=== PATIENT | female | born 1955 | race Caucasian/White ===

== ENCOUNTER 2018-06-28 11:38 | Observation (INO) | payer OTHER ==
[2018-06-28 11:51] VITALS: BMI 19.3
--- NOTE | 2018-06-28 13:01 | PDOC ---
History of Present Illness - General Chief Complaint: Rectal Bleed Stated Complaint: WEAK/RECTAL BLEEDING Time Seen by Provider: 06/28/18 12:07 History Source: Patient, Care Provider Exam Limitations: Language Barrier (exclusive Trinidadian speaker, nurse acted as educational guidance counselor) - History of Present Illness Initial Comments: Patient is a 63 y/o F w/ PMHx CKD on HD (at [facility]), anemia, "arthritis," "bladder inflammation," p/w one episode of BRBPR while attempting to defecate yesterday. Patient states the toilet bowl was filled with a mixture of bright red blood and soft formed stool. This is the first such episode she is aware of. She is hemodynamically stable on presentation. Patient endorses chills, weakness, fatigue, dyspnea at rest. Denies abd pain, n/v/d (is chronically constipated). Denies CP, TROTTER, fever, focal weakness or change in sensation. Unaware of any change in weight. She reports undergoing a colonoscopy at [facility] ~7 years ago which was significant only for polyps. States she was advised to undergo repeat colonoscopy but was told it was contraindicated by her renal status. Denies any personal or family history of IBD. Unable to specify the form of arthritis she has. Denies history of hemorrhoids. Has a PSHx of thyroid surgery but cannot recall the cause. Per patient and caregiver, her medications are acetaminophen, iron supplements, and phoslo. 06/28/18 12:52 06/28/18 13:01 Past History - Travel Traveled outside of the country in the last 30 days: No Close contact w/someone who was outside of country & ill: No - Past Medical History Allergies/Adverse Reactions: Allergies Allergy/AdvReac Type Severity Reaction Status Date / Time Penicillins Allergy Verified 06/28/18 13:39 Home Medications: Ambulatory Orders Unobtainable 10/04/15 COPD: No Dialysis: Yes (,,SUN) - Suicide/Smoking/Psychosocial Hx Smoking History: Never smoked Have you smoked in the past 12 months: No Number of Cigarettes Smoked Daily: 0 Hx Alcohol Use: No Drug/Substance Use Hx: No Review of Systems - Review of Systems Comments:: As per HPI 06/28/18 13:01 *Physical Exam - Vital Signs Last Vital Signs Temp Pulse Resp BP Pulse Ox 98 F 86 22 H 131/75 98 06/28/18 11:48 06/28/18 11:48 06/28/18 11:48 06/28/18 11:48 06/28/18 11:48 - Physical Exam Comments: Gen: A&Ox3, NAD HEENT: NC/AT, PERRLA, EOMI, MMM CV: RRR no m/r/g Resp: CTA b/l Abd: +bs, soft, NT, ND Extremities: 2+ pulses, wwp, AV fistula on RUE w/ thrill, prominent rheumatoid deformities of all extremities Neuro: fingernail former, motor, sensory systems w/o focal deficit Skin: warm, dry, normal turgor BRIGIDA: prominent external hemorrhoids, 1 internal hemorrhoid, no stool in vault, scant brown stool without blood on finger, FOBT study sent 06/28/18 13:02 06/28/18 13:06 Moderate Sedation - Procedure Monitoring Vital Signs: Procedure Monitoring Vital Signs Temperature 98 F 06/28/18 11:48 Pulse Rate 86 06/28/18 11:48 Respiratory Rate 22 H 06/28/18 11:48 Blood Pressure 131/75 06/28/18 11:48 O2 Sat by Pulse Oximetry (%) 98 06/28/18 11:48 ED Treatment Course - LABORATORY CBC & Chemistry Diagram: 06/28/18 13:55 06/28/18 13:55 Medical Decision Making - Medical Decision Making DDx of painless hematochezia is broad including bleeding 2/2 hemorrhoids, diverticulosis, AVM, and malignancy. FOBT sent on initial encounter. Ordered CBC , CMP, Mg, Phos, Coags, Retics, T&S. 06/28/18 13:04 FOBT negative. Hb 10.2, no baseline for comparison. 06/28/18 14:20 *DC/Admit/Observation/Transfer Diagnosis at time of Disposition: Rectal bleeding - Discharge Dispostion Condition at time of disposition: Guarded Decision to Admit order: Yes - Referrals - Patient Instructions - Post Discharge Activity
[2018-06-28 14:09] LABS: BASO % 1.4 % (0-2.0); EOS % 1.6 % (0-4.5); HEMATOCRIT 32.2 % (32.4-45.2); HEMOGLOBIN 10.2 GM/dL (10.7-15.3); LYMPH % 17.4 % (8-40); MCH 26.2 pg (25.7-33.7); MCHC 31.7 g/dl (32.0-36.0); MEAN CELL VOLUME 82.4 fl (80-96); MONO % 11.8 % (3.8-10.2); NEUT % 67.8 % (42.8-82.8); PLATELET COUNT 378 K/MM3 (134-434); RBC 3.91 M/mm3 (3.60-5.2); WHITE BLOOD COUNT 6.3 K/mm3 (4.0-10.0)
[2018-06-28 14:22] LABS: INR 1.1 (0.83-1.09)
--- NOTE | 2018-06-28 14:27 | PDOC ---
Attending Attestation - Resident Resident Name: Nikita Mclean - ED Attending Attestation I have performed the following: I have examined & evaluated the patient, The case was reviewed & discussed with the resident, I agree w/resident's findings & plan, Exceptions are as noted - HPI HPI: 06/28/18 15:02 The patient is a 63 year old female, accompanied by health aid, with a significant PMH of ESRD on dialysis TTS ([facility]), anemia, arthritis, bladder inflammation, who presents to the emergency department with bright red blood per rectum x2. The patient states this is the first time she has experienced these symptoms. The patient reports she noted a bright red blood in the toilet and soft stool yesterday and another episode today. The patient also endorses chills, weakness, fatigue, and chronic constipation. The patient denies history of IBD. Denies any history of hemorrhoids. Denies any recent abdominal pain or cramping. The patient denies chest pain, SOB, palpitations, headache and dizziness. Denies fever, nausea, vomit, and diarrhea. Denies dysuria, frequency, urgency and hematuria. Allergies: Penicillin Past surgical history: right upper extremity AV graft Social history: No reported - Physicial Exam PE: 06/28/18 15:05 agree with resident exam - Medical Decision Making 06/28/18 15:05 63yo F with MMP presents to the ED with rectal bleeding. Vitals unremarkable, exam with no ttp. DDx inlcudes diverticulosis vs vascular malformation vs internal hemorrhoids. Plan for labs, obs admission. Heart Score/ECG Review #1 06/28/18 15:07 Twelve-lead EKG was performed and reviewed by me. Normal sinus rhythm, rate 76. Left axis deviation, no ST elevations.
[2018-06-28 14:35] LABS: ALBUMIN 2.2 g/dl (3.4-5.0); ALK PHOS 116 U/L (45-117); ANION GAP 9 MMOL/L (8-16); BILIRUBIN,TOTAL 0.3 mg/dL (0.2-1); BLOOD UREA NITROGEN 57 mg/dL (7-18); CALCIUM 8.4 mg/dL (8.5-10.1); CHLORIDE 101 mmol/L (98-107); CO2 28 mmol/L (21-32); CREATININE 4.2 mg/dL (0.55-1.3); GLUCOSE,RANDOM 84 mg/dL (74-106); PHOSPHOROUS 6.7 mg/dL (2.5-4.9); POTASSIUM 4.4 mmol/L (3.5-5.1); SGOT/AST 12 U/L (15-37); SGPT/ALT 22 U/L (13-61); SODIUM 138 mmol/L (136-145)
[2018-06-28 15:15] LABS: ANISOCYTOSIS 1+; MACROCYTOSIS 1+; PLATELET ESTIMATE NORMAL
--- NOTE | 2018-06-28 18:32 | CON.GI ---
Consult Consult Specialty:: GI Referred by:: Chelsy wild - History of Present Illness History of Present Illness: 63 y/o F with PMH of ESRD had 1 episode of rectal bleeding. In the ER no further episodes noted. She is wheel chair dependent. She denies nausea, vomiting, melena and unexplained weight loss - Alcohol/Substance Use Hx Alcohol Use: No - Smoking History Smoking history: Never smoked Have you smoked in the past 12 months: No Aproximately how many cigarettes per day: 0 Home Medications - Allergies Allergies/Adverse Reactions: Allergies Allergy/AdvReac Type Severity Reaction Status Date / Time Penicillins Allergy Verified 06/28/18 13:39 - Home Medications Home Medications: Ambulatory Orders Acetaminophen [Tylenol Arthritis] 650 mg PO Q8H PRN 06/28/18 Calcium Acetate [Phoslo -] 667 mg PO TIDCM 06/28/18 Ferrous Sulfate [Feosol] 325 mg PO BID 06/28/18 Review of Systems - Review of Systems Constitutional: denies: Fever Eyes: denies: Blind Spots HENT: denies: Difficult Swallowing Neck: denies: Decreased ROM Cardiovascular: reports: Chest Pain Gastrointestinal: reports: Rectal Bleeding Musculoskeletal: reports: Other (lower extremity pain) Physical Exam-GI Vital Signs: Vital Signs Temperature 98 F 06/28/18 11:48 Pulse Rate 82 06/28/18 14:15 Respiratory Rate 18 06/28/18 14:15 Blood Pressure 118/66 06/28/18 14:15 O2 Sat by Pulse Oximetry (%) 97 06/28/18 14:15 Constitutional: Yes: Cachectic Eyes: Yes: Conjunctiva Clear HENT: Yes: Atraumatic Neck: Yes: Supple Cardiovascular: Yes: Regular Rate and Rhythm Respiratory: Yes: CTA Bilaterally Gastrointestinal Inspection: No: Distention ...Auscultate: Yes: Normoactive Bowel Sounds ...Palpate: Yes: Soft. No: Firm/Rigid, Guarding, Hepatomegaly, Mass, Pulsatile Mass, Splenomegaly, Tenderness ...Rectal Exam: Yes: Sphincter Tone Normal. No: Hemorrhoids/External, Hemorrhoids/Internal, Mass (empty rectal vault) Labs: CBC, BMP 06/28/18 13:55 06/28/18 13:55 INR, PTT INR 1.10 (0.83-1.09) H 06/28/18 13:55 Problem List - Problems (1) Rectal bleeding Assessment/Plan: etiology unclear R> made aware to follow, no active bleeding noted in the ER examination Code(s): K62.5 - HEMORRHAGE OF ANUS AND RECTUM
--- NOTE | 2018-06-28 18:56 | HP ---
Admitting History and Physical - Admission Chief Complaint: Rectal bleeding History of Present Illness: Patient is a 63 y/o female with past medical history of ESRD (), anemia, arthritis, and bladder inflammation. Patient presented to ER with complaints of BRBPR x 2 episodes yesterday when having a bowel movement. Patient denies experiencing rectal bleeding prior to yesterday's episode. H/H stable and Stool Occult blood negative. She denies abdominal pain, nausea, vomiting, rectal pain. Patient complain of increased feelings of fatigue. History Source: Patient Limitations to Obtaining History: No Limitations - Past Medical History Renal/: Yes: Renal Failure, Hemodialysis () Heme/Onc: Yes: Anemia - Smoking History Smoking history: Never smoked Have you smoked in the past 12 months: No Aproximately how many cigarettes per day: 0 - Alcohol/Substance Use Hx Alcohol Use: No - Social History Usual Living Arrangement: Yes: Other (with son) ADL: Family Assistance History of Recent Travel: No <Marilyn Delarosa - Last Filed: 06/28/18 19:03> Home Medications <Marilyn Delarosa - Last Filed: 06/28/18 19:03> <Anthony Valentino - Last Filed: 06/28/18 21:18> - Allergies Allergies/Adverse Reactions: Allergies Allergy/AdvReac Type Severity Reaction Status Date / Time Penicillins Allergy Verified 06/28/18 13:39 - Home Medications Home Medications: Ambulatory Orders Acetaminophen [Tylenol Arthritis] 650 mg PO Q8H PRN 06/28/18 Calcium Acetate [Phoslo -] 667 mg PO TIDCM 06/28/18 Ferrous Sulfate [Feosol] 325 mg PO BID 06/28/18 Review of Systems - Review of Systems Constitutional: reports: Lethargy Eyes: reports: No Symptoms HENT: reports: No Symptoms Neck: reports: No Symptoms Cardiovascular: reports: No Symptoms Respiratory: reports: No Symptoms Gastrointestinal: reports: Rectal Bleeding Genitourinary: reports: No Symptoms Breasts: reports: No Symptoms Reported Musculoskeletal: reports: Joint Pain Integumentary: reports: No Symptoms Neurological: reports: No Symptoms Endocrine: reports: No Symptoms Hematology/Lymphatic: reports: No Symptoms Psychiatric: reports: No Symptoms <Marilyn Delarosa - Last Filed: 06/28/18 19:03> Physical Examination Vital Signs: Vital Signs Temperature 97.9 F 06/28/18 18:00 Pulse Rate 80 06/28/18 18:00 Respiratory Rate 20 06/28/18 18:00 Blood Pressure 111/72 06/28/18 18:00 O2 Sat by Pulse Oximetry (%) 97 06/28/18 14:15 Constitutional: Yes: Calm, Cachectic Eyes: Yes: Conjunctiva Clear HENT: Yes: Atraumatic Neck: Yes: Supple Cardiovascular: Yes: Regular Rate and Rhythm Respiratory: Yes: Regular, CTA Bilaterally Gastrointestinal: Yes: Normal Bowel Sounds, Soft Musculoskeletal: Yes: Joint Stiffness, Muscle Weakness Extremities: Yes: Deformity (arthritic derformity B/L hand) Edema: No Integumentary: Yes: WNL Neurological: Yes: Alert, Oriented Psychiatric: Yes: Alert, Oriented Labs: CBC, BMP 06/28/18 13:55 06/28/18 13:55 <Marilyn Delarosa - Last Filed: 06/28/18 19:03> Vital Signs: Vital Signs Temperature 97.9 F 06/28/18 18:00 Pulse Rate 80 06/28/18 18:00 Respiratory Rate 20 06/28/18 18:00 Blood Pressure 111/72 06/28/18 18:00 O2 Sat by Pulse Oximetry (%) 97 06/28/18 14:15 Labs: CBC, BMP 06/28/18 13:55 06/28/18 13:55 <Anthony Valentino - Last Filed: 06/28/18 21:18> Problem List - Problems (1) ESRD on hemodialysis Code(s): N18.6 - END STAGE RENAL DISEASE; Z99.2 - DEPENDENCE ON RENAL DIALYSIS (2) Rectal bleeding Code(s): K62.5 - HEMORRHAGE OF ANUS AND RECTUM (3) Anemia Code(s): D64.9 - ANEMIA, UNSPECIFIED <Marilyn Delarosa - Last Filed: 06/28/18 19:03> Assessment/Plan -GI consult made -clear liquid diet -renal consult -on phoslo TID -H/H stable, will monitor -cont iron BID -HD on -S -1L fluid restriction -O2 via NC, keep SpO2 >90% -dvt ppx <Marilyn Delarosa - Last Filed: 06/28/18 19:03> I HAVE EXAMINED THE PATIENT AND I AGREE WITH THE ABOVE NOTE <Anthony Valentino - Last Filed: 06/28/18 21:18>
[2018-06-28] MEDS: FERROUS SO4 325 MG TABLET (FP) PO SCH (22:39)
[2018-06-29 07:47] LABS: HEMATOCRIT 29.3 % (32.4-45.2); HEMOGLOBIN 9.4 GM/dL (10.7-15.3); MCH 26.5 pg (25.7-33.7); MCHC 31.9 g/dl (32.0-36.0); MEAN CELL VOLUME 82.9 fl (80-96); MEAN PLT VOLUME 8.2 fl (7.5-11.1); PLATELET COUNT 334 K/MM3 (134-434); RBC 3.54 M/mm3 (3.60-5.2); RDW 22.2 % (11.6-15.6); WHITE BLOOD COUNT 5.9 K/mm3 (4.0-10.0)
[2018-06-29 08:08] LABS: ALK PHOS 106 U/L (45-117); ANION GAP 12 MMOL/L (8-16); BILIRUBIN,TOTAL 0.4 mg/dL (0.2-1); BLOOD UREA NITROGEN 74 mg/dL (7-18); CALCIUM 7.6 mg/dL (8.5-10.1); CHLORIDE 102 mmol/L (98-107); CO2 25 mmol/L (21-32); CREATININE 5.4 mg/dL (0.55-1.3); GLUCOSE,RANDOM 72 mg/dL (74-106); POTASSIUM 5.5 mmol/L (3.5-5.1); SGOT/AST 10 U/L (15-37); SGPT/ALT 20 U/L (13-61); SODIUM 139 mmol/L (136-145); TOT PROT 6.5 g/dl (6.4-8.2)
[2018-06-29] MEDS: CALCIUM ACETATE 667 MG CAPSULE (FP) PO SCH ×3 (08:27→18:09)
[2018-06-29] MEDS ORDERED: SODIUM CHLORIDE 250 ML IV PRN ×2 (09:10→09:12)
[2018-06-29] MEDS: FERROUS SO4 325 MG TABLET (FP) PO SCH ×2 (09:24→21:36)
--- NOTE | 2018-06-29 12:02 | PN ---
Progress Note, Physician Chief Complaint: RECTAL BLEEDING ANEMIA ESRD History of Present Illness: NAD denies any bleeding, pain or SOB Due for dialysis today Unsure what is her baseline Hg - Current Medication List Current Medications: Active Medications Calcium Acetate (Phoslo -) 667 mg PO TIDCM [facility] Last Admin: 06/29/18 08:27 Dose: 667 mg Ferrous Sulfate (Feosol -) 325 mg PO BID [facility] Last Admin: 06/29/18 09:24 Dose: 325 mg Sodium Chloride (Normal Saline -) 250 mls @ 3,000 mls/hr IV PRN PRN PRN Reason: Hypotension during Dialysis Stop: 06/30/18 09:10 Sodium Chloride (Normal Saline -) 250 mls @ 3,000 mls/hr IV PRN PRN PRN Reason: Hypotension during Dialysis Stop: 06/30/18 09:12 - Objective Vital Signs: Vital Signs Temperature 98.8 F 06/29/18 08:49 Pulse Rate 85 06/29/18 08:49 Respiratory Rate 20 06/29/18 09:00 Blood Pressure 135/83 06/29/18 08:49 O2 Sat by Pulse Oximetry (%) 98 06/29/18 09:00 Constitutional: Yes: No Distress, Calm, Cachectic Cardiovascular: Yes: Regular Rate and Rhythm Respiratory: Yes: Regular Gastrointestinal: Yes: Normal Bowel Sounds, Soft, Abdomen, Obese Musculoskeletal: Yes: WNL Extremities: Yes: WNL Edema: No Peripheral Pulses WNL: Yes Neurological: Yes: Alert, Oriented Psychiatric: Yes: Alert, Oriented Labs: CBC, BMP 06/29/18 06:45 06/29/18 06:30 INR, PTT INR 1.10 (0.83-1.09) H 06/28/18 13:55 Problem List - Problems (1) Anemia Assessment/Plan: -likely 2/2 to ckd -first stool ob negative, would repeat -Seen by GI, no intervention recommended at this time -check iron+thyroid profile+ b12+ FA Code(s): D64.9 - ANEMIA, UNSPECIFIED (2) ESRD on hemodialysis Assessment/Plan: -Dialysis TThSa -Nephrology consult Code(s): N18.6 - END STAGE RENAL DISEASE; Z99.2 - DEPENDENCE ON RENAL DIALYSIS (3) Rectal bleeding Assessment/Plan: -stool ob negative Code(s): K62.5 - HEMORRHAGE OF ANUS AND RECTUM (4) Hyperkalemia Code(s): E87.5 - HYPERKALEMIA Assessment/Plan See problem list d/c to Zan Bowles if H/H in AM okay
--- NOTE | 2018-06-29 14:19 | CONSULT ---
Consult Consult Specialty:: Nephrology Reason for Consultation:: ESRD - History of Present Illness Chief Complaint: rectal bleeding History of Present Illness: Pt is a 63 year old female with pmhx of ESRD, arthritis, and anemia who presents to the ER after an episode of rectal bleeding. She complains of constipation as well. She is on HD at [facility] and is on a TTS schedule. She denies fevers or chills. She is due for HD today. She follows with Dr Roldan. I called him and he asked me to see her as he is away. - History Source History Provided By: Patient, Medical Record - Past Medical History Renal/: Yes: Renal Failure, Hemodialysis (T--S) ...: No Heme/Onc: Yes: Anemia Rheumatology: Yes: Other (arthritis) - Alcohol/Substance Use Hx Alcohol Use: No - Smoking History Smoking history: Never smoked Have you smoked in the past 12 months: No Aproximately how many cigarettes per day: 0 - Social History ADL: Family Assistance History of Recent Travel: No Home Medications - Allergies Allergies/Adverse Reactions: Allergies Allergy/AdvReac Type Severity Reaction Status Date / Time Penicillins Allergy Verified 06/28/18 13:39 - Home Medications Home Medications: Ambulatory Orders Acetaminophen [Tylenol Arthritis] 650 mg PO Q8H PRN 06/28/18 Calcium Acetate [Phoslo -] 667 mg PO TIDCM 06/28/18 Ferrous Sulfate [Feosol] 325 mg PO BID 06/28/18 Family Disease History - Family Disease History Family History: Denies Review of Systems - Review of Systems Constitutional: reports: No Symptoms Eyes: reports: No Symptoms HENT: reports: No Symptoms Neck: reports: No Symptoms Cardiovascular: reports: No Symptoms Respiratory: reports: No Symptoms Gastrointestinal: reports: Constipation, Rectal Bleeding Genitourinary: reports: No Symptoms Musculoskeletal: reports: Joint Pain Integumentary: reports: No Symptoms Neurological: reports: No Symptoms Endocrine: reports: No Symptoms Hematology/Lymphatic: reports: No Symptoms Psychiatric: reports: No Symptoms Physical Exam Vital Signs: Vital Signs Temperature 98.8 F 06/29/18 08:49 Pulse Rate 85 06/29/18 08:49 Respiratory Rate 20 06/29/18 09:00 Blood Pressure 135/83 06/29/18 08:49 O2 Sat by Pulse Oximetry (%) 98 06/29/18 09:00 Constitutional: Yes: Calm Eyes: Yes: Conjunctiva Clear HENT: Yes: Atraumatic Neck: Yes: Supple Cardiovascular: Yes: S1, S2 Respiratory: Yes: CTA Bilaterally Gastrointestinal: Yes: Normal Bowel Sounds, Soft Musculoskeletal: Yes: Joint Stiffness Edema: No Neurological: Yes: Oriented Psychiatric: Yes: Oriented Labs: CBC, BMP 06/29/18 06:45 06/29/18 06:30 Laboratory Tests 06/28/18 06/28/18 06/28/18 13:00 13:55 13:55 Hgb 10.2 L Sodium Potassium 4.4 Creatinine 4.2 H Stool Occult Blood Negative 06/29/18 06/29/18 06:30 06:45 Hgb 9.4 L Sodium 139 Potassium 5.5 H Creatinine 5.4 H Stool Occult Blood Problem List - Problems (1) Anemia Code(s): D64.9 - ANEMIA, UNSPECIFIED (2) ESRD on hemodialysis Code(s): N18.6 - END STAGE RENAL DISEASE; Z99.2 - DEPENDENCE ON RENAL DIALYSIS (3) Hyperkalemia Code(s): E87.5 - HYPERKALEMIA (4) Rectal bleeding Code(s): K62.5 - HEMORRHAGE OF ANUS AND RECTUM Assessment/Plan Current Medications Generic Name Dose Route Start Last Admin Trade Name Yudy PRN Reason Stop Dose Admin Calcium Acetate 667 mg 06/29/18 08:00 06/29/18 08:27 Phoslo - PO 667 mg TIDCM QUYNH Administration Ferrous Sulfate 325 mg 06/28/18 22:00 06/29/18 09:24 Feosol - PO 325 mg BID QUYNH Administration Sodium Chloride 250 mls @ 3,000 mls/hr 06/29/18 09:10 Normal Saline - IV 06/30/18 09:10 PRN PRN Hypotension during Dialysis Sodium Chloride 250 mls @ 3,000 mls/hr 06/29/18 09:12 Normal Saline - IV 06/30/18 09:12 PRN PRN Hypotension during Dialysis Impression 1. ESRD 2. hyperkalemia 3. anemia 4. rectal bleeding 5. arthritis Plan - will arrange for HD today - monitor hg - GI follow up - will treat potassium with HD - renal diet - will follow Dr Leonard
--- NOTE | 2018-06-29 22:30 | DS ---
Physical Examination Vital Signs: Vital Signs Temperature 98.9 F 06/29/18 18:00 Pulse Rate 84 06/29/18 18:00 Respiratory Rate 20 06/29/18 18:00 Blood Pressure 115/72 06/29/18 18:00 O2 Sat by Pulse Oximetry (%) 98 06/29/18 09:00 Findings/Remarks: Patient is a 63 y/o female with past medical history of ESRD (T--), anemia, arthritis, and bladder inflammation. Patient presented to ER with complaints of BRBPR x 2 episodes yesterday when having a bowel movement. Patient denies experiencing rectal bleeding prior to yesterday's episode. H/H stable and Stool Occult blood negative. She denies abdominal pain, nausea, vomiting, rectal pain. Patient complain of increased feelings of fatigue. Constitutional: Yes: Well Nourished, No Distress, Calm Cardiovascular: Yes: Regular Rate and Rhythm Respiratory: Yes: Regular Gastrointestinal: Yes: Normal Bowel Sounds, Soft Musculoskeletal: Yes: Muscle Weakness Extremities: Yes: Other (generalized atrophy) Edema: No Peripheral Pulses WNL: Yes Neurological: Yes: Alert, Oriented Psychiatric: Yes: Alert, Oriented Labs: CBC, BMP 06/29/18 06:45 06/29/18 06:30 Discharge Summary Reason For Visit: RECTAL HEMORRHAGE Current Active Problems Anemia (Acute) ESRD on hemodialysis (Acute) Hyperkalemia (Acute) Rectal bleeding (Acute) Hospital Course: Laboratory Last Values WBC 5.9 K/mm3 (4.0-10.0) 06/29/18 06:45 RBC 3.54 M/mm3 (3.60-5.2) L 06/29/18 06:45 Hgb 9.4 GM/dL (10.7-15.3) L 06/29/18 06:45 Hct 29.3 % (32.4-45.2) L 06/29/18 06:45 MCV 82.9 fl (80-96) 06/29/18 06:45 MCH 26.5 pg (25.7-33.7) 06/29/18 06:45 MCHC 31.9 g/dl (32.0-36.0) L 06/29/18 06:45 RDW 22.2 % (11.6-15.6) H 06/29/18 06:45 Plt Count 334 K/MM3 (134-434) 06/29/18 06:45 MPV 8.2 fl (7.5-11.1) 06/29/18 06:45 Absolute Neuts (auto) 4.2 K/mm3 (1.5-8.0) 06/28/18 13:55 Neutrophils % 67.8 % (42.8-82.8) 06/28/18 13:55 Lymphocytes % 17.4 % (8-40) 06/28/18 13:55 Monocytes % 11.8 % (3.8-10.2) H 06/28/18 13:55 Eosinophils % 1.6 % (0-4.5) 06/28/18 13:55 Basophils % 1.4 % (0-2.0) 06/28/18 13:55 Nucleated RBC % 0 % (0-0) 06/28/18 13:55 Hypochromia 1+ 06/28/18 13:55 Platelet Estimate Normal 06/28/18 13:55 Polychromasia 1+ 06/28/18 13:55 Poikilocytosis 0 06/28/18 13:55 Basophilic Stippling 1+ 06/28/18 13:55 Anisocytosis 1+ 06/28/18 13:55 Microcytosis 0 06/28/18 13:55 Macrocytosis 1+ 06/28/18 13:55 Retic Count 1.70 % (0.5-1.5) H 06/28/18 13:55 PT with INR 13.00 SEC (9.7-13.0) 06/28/18 13:55 INR 1.10 (0.83-1.09) H 06/28/18 13:55 Sodium 139 mmol/L (136-145) 06/29/18 06:30 Potassium 5.5 mmol/L (3.5-5.1) H 06/29/18 06:30 Chloride 102 mmol/L (98-107) 06/29/18 06:30 Carbon Dioxide 25 mmol/L (21-32) 06/29/18 06:30 Anion Gap 12 MMOL/L (8-16) 06/29/18 06:30 BUN 74 mg/dL (7-18) H 06/29/18 06:30 Creatinine 5.4 mg/dL (0.55-1.3) H 06/29/18 06:30 Creat Clearance w eGFR 8.05 (>60) 06/29/18 06:30 Random Glucose 72 mg/dL (74-106) L 06/29/18 06:30 Calcium 7.6 mg/dL (8.5-10.1) L 06/29/18 06:30 Phosphorus 6.7 mg/dL (2.5-4.9) H 06/28/18 13:55 Magnesium 3.0 mg/dL (1.8-2.4) H 06/28/18 13:55 Ferritin 2473.8 ng/ml (8-388) H 06/29/18 06:30 Total Bilirubin 0.4 mg/dL (0.2-1) 06/29/18 06:30 AST 10 U/L (15-37) L 06/29/18 06:30 ALT 20 U/L (13-61) 06/29/18 06:30 Alkaline Phosphatase 106 U/L (45-117) 06/29/18 06:30 Total Protein 6.5 g/dl (6.4-8.2) 06/29/18 06:30 Albumin 2.0 g/dl (3.4-5.0) L 06/29/18 06:30 Vitamin B12 1333 pg/ml (193-986) H 06/29/18 06:30 Serum Folate 35 ng/mL (3.1-17.5) H 06/29/18 06:30 TSH 1.48 uIU/ml (0.358-3.74) 06/29/18 06:30 Free T4 1.08 ng/dl (0.76-1.46) 06/29/18 06:30 Stool Occult Blood Negative (NEGATIVE) 06/28/18 13:00 Blood Type O POSITIVE 06/28/18 15:40 Antibody Screen Negative 06/28/18 13:44 Condition: Stable - Instructions Disposition: [facility] - Home Medications Comprehensive Discharge Medication List: Ambulatory Orders Acetaminophen [Tylenol Arthritis] 650 mg PO Q8H PRN 06/28/18 Calcium Acetate [Phoslo -] 667 mg PO TIDCM 06/28/18 Ferrous Sulfate [Feosol] 325 mg PO BID 06/28/18
[2018-06-30 08:05] LABS: BASO % 1.1 % (0-2.0); EOS % 2.9 % (0-4.5); HEMATOCRIT 29.9 % (32.4-45.2); HEMOGLOBIN 9.5 GM/dL (10.7-15.3); LYMPH % 22.7 % (8-40); MCH 26.3 pg (25.7-33.7); MCHC 31.7 g/dl (32.0-36.0); MEAN CELL VOLUME 82.8 fl (80-96); MEAN PLT VOLUME 8.2 fl (7.5-11.1); MONO % 12.5 % (3.8-10.2); NEUT % 60.8 % (42.8-82.8); PLATELET COUNT 295 K/MM3 (134-434); RBC 3.61 M/mm3 (3.60-5.2); RDW 22.6 % (11.6-15.6); WHITE BLOOD COUNT 5.2 K/mm3 (4.0-10.0)
[2018-06-30 08:06] LABS: SERUM IRON SATURATION 19 % (15-55); TOTAL IRON BINDING CAPACITY 113 ug/dL (250-450); UIBC 92 ug/dL (118-369)
[2018-06-30] MEDS: CALCIUM ACETATE 667 MG CAPSULE (FP) PO SCH ×3 (08:30→17:20)
[2018-06-30 08:33] LABS: ALK PHOS 104 U/L (45-117); ANION GAP 9 MMOL/L (8-16); BILIRUBIN,TOTAL 0.4 mg/dL (0.2-1); BLOOD UREA NITROGEN 38 mg/dL (7-18); CALCIUM 7.9 mg/dL (8.5-10.1); CHLORIDE 103 mmol/L (98-107); CO2 30 mmol/L (21-32); CREATININE 3.5 mg/dL (0.55-1.3); GLUCOSE,RANDOM 75 mg/dL (74-106); POTASSIUM 4.1 mmol/L (3.5-5.1); SGOT/AST 13 U/L (15-37); SGPT/ALT 17 U/L (13-61); SODIUM 142 mmol/L (136-145); TOT PROT 6.4 g/dl (6.4-8.2)
--- NOTE | 2018-06-30 09:05 | PN ---
Progress Note, Physician Chief Complaint: RECTAL BLEEDING ANEMIA ESRD History of Present Illness: NAD denies any bleeding, pain or SOB received dialysis yesterday holding h/h well awaiting [facility] - Current Medication List Current Medications: Active Medications Calcium Acetate (Phoslo -) 667 mg PO TIDCM [facility] Last Admin: 06/29/18 18:09 Dose: 667 mg Ferrous Sulfate (Feosol -) 325 mg PO BID [facility] Last Admin: 06/29/18 21:36 Dose: 325 mg Sodium Chloride (Normal Saline -) 250 mls @ 3,000 mls/hr IV PRN PRN PRN Reason: Hypotension during Dialysis Stop: 06/30/18 09:10 Sodium Chloride (Normal Saline -) 250 mls @ 3,000 mls/hr IV PRN PRN PRN Reason: Hypotension during Dialysis Stop: 06/30/18 09:12 - Objective Vital Signs: Vital Signs Temperature 98.4 F 06/30/18 05:43 Pulse Rate 85 06/30/18 05:43 Respiratory Rate 18 06/30/18 05:43 Blood Pressure 120/75 06/30/18 05:43 O2 Sat by Pulse Oximetry (%) 100 06/29/18 21:00 Constitutional: Yes: Well Nourished, No Distress, Calm Cardiovascular: Yes: Regular Rate and Rhythm Respiratory: Yes: Regular Gastrointestinal: Yes: Normal Bowel Sounds, Soft Musculoskeletal: Yes: Muscle Weakness Extremities: Yes: Other (generalized atrophy) Edema: No Peripheral Pulses WNL: Yes Neurological: Yes: Alert, Pre-Existing Deficit Psychiatric: Yes: Alert Labs: CBC, BMP 06/30/18 07:00 06/30/18 07:00 INR, PTT INR 1.10 (0.83-1.09) H 06/28/18 13:55 Problem List - Problems (1) Anemia Assessment/Plan: -likely 2/2 to ckd -first stool ob negative -Seen by GI, no intervention recommended at this time -iron+thyroid profile+ b12+ FA-all unremarkable Epogen if okay with nephrology Code(s): D64.9 - ANEMIA, UNSPECIFIED (2) ESRD on hemodialysis Assessment/Plan: -Dialysis TThSa -Nephrology consult Code(s): N18.6 - END STAGE RENAL DISEASE; Z99.2 - DEPENDENCE ON RENAL DIALYSIS (3) Rectal bleeding Assessment/Plan: -stool ob negative Code(s): K62.5 - HEMORRHAGE OF ANUS AND RECTUM (4) Hyperkalemia Assessment/Plan: -resolved Code(s): E87.5 - HYPERKALEMIA Assessment/Plan See problem list d/c to Zan Bowles
[2018-06-30] MEDS: FERROUS SO4 325 MG TABLET (FP) PO SCH ×2 (09:18→21:53)
--- NOTE | 2018-06-30 16:59 | PN ---
Progress Note, Physician History of Present Illness: Pt seen and examined at bedside. She denies any more rectal bleeding. She tolerated HD yesterday. - Current Medication List Current Medications: Active Medications Calcium Acetate (Phoslo -) 667 mg PO TIDCM [facility] [place] Last Admin: 06/30/18 11:59 Dose: 667 mg Ferrous Sulfate (Feosol -) 325 mg PO BID [facility] [place] Last Admin: 06/30/18 09:18 Dose: 325 mg Sodium Chloride (Normal Saline -) 250 mls @ 3,000 mls/hr IV PRN PRN PRN Reason: Hypotension during Dialysis Stop: 06/30/18 09:10 Sodium Chloride (Normal Saline -) 250 mls @ 3,000 mls/hr IV PRN PRN PRN Reason: Hypotension during Dialysis Stop: 06/30/18 09:12 - Objective Vital Signs: Vital Signs Temperature 99.3 F 06/30/18 13:26 Pulse Rate 91 H 06/30/18 13:26 Respiratory Rate 18 06/30/18 13:26 Blood Pressure 115/62 06/30/18 13:26 O2 Sat by Pulse Oximetry (%) 97 06/30/18 09:00 Constitutional: Yes: Calm Eyes: Yes: Conjunctiva Clear HENT: Yes: Atraumatic Neck: Yes: Supple Cardiovascular: Yes: S1, S2 Respiratory: Yes: CTA Bilaterally Gastrointestinal: Yes: Soft Genitourinary: Yes: WNL Musculoskeletal: Yes: Joint Stiffness Edema: No Neurological: Yes: Oriented Psychiatric: Yes: Oriented Labs: CBC, BMP 06/30/18 07:00 06/30/18 07:00 INR, PTT INR 1.10 (0.83-1.09) H 06/28/18 13:55 Problem List - Problems (1) Anemia Code(s): D64.9 - ANEMIA, UNSPECIFIED (2) ESRD on hemodialysis Code(s): N18.6 - END STAGE RENAL DISEASE; Z99.2 - DEPENDENCE ON RENAL DIALYSIS (3) Hyperkalemia Code(s): E87.5 - HYPERKALEMIA (4) Rectal bleeding Code(s): K62.5 - HEMORRHAGE OF ANUS AND RECTUM Assessment/Plan Current Medications Generic Name Dose Route Start Last Admin Trade Name Freq PRN Reason Stop Dose Admin Calcium Acetate 667 mg 06/29/18 08:00 06/30/18 11:59 Phoslo - PO 667 mg TIDCM QUYNH Administration Ferrous Sulfate 325 mg 06/28/18 22:00 06/30/18 09:18 Feosol - PO 325 mg BID QUYNH Administration Sodium Chloride 250 mls @ 3,000 mls/hr 06/29/18 09:10 Normal Saline - IV 06/30/18 09:10 PRN PRN Hypotension during Dialysis Sodium Chloride 250 mls @ 3,000 mls/hr 06/29/18 09:12 Normal Saline - IV 06/30/18 09:12 PRN PRN Hypotension during Dialysis Impression 1. ESRD 2. hyperkalemia 3. anemia 4. rectal bleeding 5. arthritis Plan - next HD on Sunday, she has HD set up as outpt - monitor hg - gi follow up - renal diet - will follow Dr Leonard
[2018-07-01 05:49] VITALS: BP 128/75; PULSE 88; TEMP 98.8
[2018-07-01] MEDS: CALCIUM ACETATE 667 MG CAPSULE (FP) PO SCH (08:40)
[2018-07-01 22:08] LABS: HBSAG SCREEN Negative (Negative); HEP A AB, IGM Negative (Negative); HEP B CORE AB, TOT Negative (Negative)
--- NOTE | 2018-08-06 10:58 | EKG ---
Test Reason : Blood Pressure : / mmHG Vent. Rate : 076 BPM Atrial Rate : 076 BPM P-R Int : 136 ms QRS Dur : 092 ms QT Int : 426 ms P-R-T Axes : 006 -43 018 degrees QTc Int : 479 ms NORMAL SINUS RHYTHM LEFT AXIS DEVIATION ABNORMAL ECG NO PREVIOUS ECGS AVAILABLE Confirmed by Sridhar Aguero MD ([id number]) on 08/06/2018 10:57:50 AM Referred By: Confirmed By:Sridhar Aguero MD
== END 2018-07-01 08:46 | disposition home or self-care (01) ==
LOC: JER 11:38 → INTOOBSV 15:51 → JERBED 15:51 → J7W 21:49
PROVIDERS: ADMIT Family Medicine; ATTEND Family Medicine
PROC: 3E0337Z Introduction of Electrolytic and Water Balance Substance into Peripheral Vein, Percutaneous Approach (ICD-10-PCS; principal; 2018-06-28)
DX: K62.5 Hemorrhage of anus and rectum (principal); N18.6 End stage renal disease; Z99.2 Dependence on renal dialysis; D64.9 Anemia, unspecified; M19.90 Unspecified osteoarthritis, unspecified site; E87.5 Hyperkalemia; Z88.0 Allergy status to penicillin
CPT/HCPCS: 36415; 80053; 82272; 82607; 82728; 82746; 83540; 83550; 83735; 84100; 84439; 84443; 85025; 85027; 85044; 85610; 86704; 86706; 86708; 86803; 86850; 86900; 86901; 87340; 93005; 93010; 99283-25; G0378

== ENCOUNTER 2018-07-15 11:49 | Emergency (ER) | payer OTHER ==
--- NOTE | 2018-07-15 13:34 | PDOC ---
Rapid Medical Evaluation Time Seen by Provider: 07/15/18 13:32 Medical Evaluation: Allergies Allergy/AdvReac Type Severity Reaction Status Date / Time Penicillins Allergy Verified 06/28/18 13:39 07/15/18 13:32 I have performed a brief in-person evaluation of this patient. The patient presents with a chief complaint of: fever, diarrhea and congestion x 2 days As per son, patient had dialysis yesterday and is scheduled tomorrow Pertinent physical exam findings: warm to touch even and unlabored breathing appears weak in wheelchair I have ordered the following: labs The patient will proceed to the ED for further evaluation. Discharge Disposition - Referrals Referrals: Mena Aquino [Primary Care Provider] - - Patient Instructions - Post Discharge Activity
[2018-07-15 13:37] VITALS: BP 117/69; PULSE 98; TEMP 99.8; BMI 19.3
[2018-07-15 14:29] LABS: BASO % 1.4 % (0-2.0); EOS % 0.2 % (0-4.5); HEMATOCRIT 34.1 % (32.4-45.2); HEMOGLOBIN 11.1 GM/dL (10.7-15.3); LYMPH % 23.8 % (8-40); MCH 27.1 pg (25.7-33.7); MCHC 32.7 g/dl (32.0-36.0); MEAN PLT VOLUME 9.1 fl (7.5-11.1); MONO % 10.2 % (3.8-10.2); NEUT % 64.4 % (42.8-82.8); PLATELET COUNT 292 K/MM3 (134-434); RBC 4.11 M/mm3 (3.60-5.2); RDW 23.4 % (11.6-15.6); WHITE BLOOD COUNT 8.1 K/mm3 (4.0-10.0)
[2018-07-15 15:28] LABS: ANISOCYTOSIS 2+; MACROCYTOSIS 0; PLATELET ESTIMATE NORMAL
[2018-07-15 17:08] LABS: ALBUMIN 2.1 g/dl (3.4-5.0); ALK PHOS 109 U/L (45-117); ANION GAP 13 MMOL/L (8-16); BILIRUBIN,TOTAL 0.3 mg/dL (0.2-1); BLOOD UREA NITROGEN 95 mg/dL (7-18); CALCIUM 7.2 mg/dL (8.5-10.1); CHLORIDE 97 mmol/L (98-107); CO2 23 mmol/L (21-32); CREATININE 6.2 mg/dL (0.55-1.3); GLUCOSE,RANDOM 88 mg/dL (74-106); POTASSIUM 5.7 mmol/L (3.5-5.1); SGOT/AST 17 U/L (15-37); SGPT/ALT 23 U/L (13-61); SODIUM 134 mmol/L (136-145); TOT PROT 6.6 g/dl (6.4-8.2)
--- NOTE | 2018-07-15 17:35 | PDOC ---
History of Present Illness - General Chief Complaint: Diarrhea Stated Complaint: FEVER Time Seen by Provider: 07/15/18 13:32 - History of Present Illness Initial Comments: The pt is a 63F w/ a history of ESRD on dialysis, HTN, who presents for evaluation of 2d of subjective fevers, chills, malaise, generalized myalgias, and cough. The patient did not obtain the flu shot this year. She endorses NB diarrhea for two days as well. Denies TROTTER, vision changes, sick contacts, chest pain, abdominal pain, or changes in sensation or strength 07/15/18 17:32 Past History - Past Medical History Allergies/Adverse Reactions: Allergies Allergy/AdvReac Type Severity Reaction Status Date / Time Penicillins Allergy Verified 07/15/18 13:34 Home Medications: Ambulatory Orders Acetaminophen [Tylenol Arthritis] 650 mg PO Q8H PRN 06/28/18 Calcium Acetate [Phoslo -] 667 mg PO TIDCM 06/28/18 Ferrous Sulfate [Feosol] 325 mg PO BID 06/28/18 Oseltamivir Phosphate [Tamiflu -] 75 mg PO BID #10 capsule 07/15/18 Anemia: Yes COPD: No Dialysis: Yes (,,[facility]) - Suicide/Smoking/Psychosocial Hx Smoking History: Never smoked Have you smoked in the past 12 months: No Number of Cigarettes Smoked Daily: 0 Hx Alcohol Use: No Drug/Substance Use Hx: No Substance Use Type: None Hx Substance Use Treatment: No Review of Systems - Review of Systems Able to Perform ROS?: Yes Comments:: GENERAL/CONSTITUTIONAL: No weakness HEAD, EYES, EARS, NOSE AND THROAT: No change in vision. No ear pain or discharge. No sore throat CARDIOVASCULAR: No chest pain or shortness of breath RESPIRATORY: Denies hemoptysis GASTROINTESTINAL: No diarrhea or constipation GENITOURINARY: No dysuria, frequency, or change in urination MUSCULOSKELETAL: +generalized myalgias SKIN: No rash NEUROLOGIC: No headache, vertigo, loss of consciousness, or change in strength/ sensation ENDOCRINE: No increased thirst. No abnormal weight change HEMATOLOGIC/LYMPHATIC: No anemia, easy bleeding, or history of blood clots ALLERGIC/IMMUNOLOGIC: No hives or skin allergy 07/15/18 18:29 Is the patient limited [place] proficient: No *Physical Exam - Vital Signs Last Vital Signs Temp Pulse Resp BP Pulse Ox 99.8 F H 98 H 20 117/69 98 07/15/18 13:34 07/15/18 13:34 07/15/18 13:34 07/15/18 13:34 07/15/18 13:34 - Physical Exam Comments: GENERAL: Awake, alert, and fully oriented, in no acute distress HEAD: No signs of trauma, normocephalic, atraumatic EYES: PERRLA, EOMI, sclera anicteric, conjunctiva clear ENT: Hearing grossly normal, nares patent, oropharynx clear without exudates. Moist mucosa LUNGS: b/l mild wheezing, productive cough, no respiratory distress, breathing comfortably on room air HEART: Regular rate and rhythm, normal S1 and S2, no murmurs appreciated, peripheral pulses normal and equal bilaterally ABDOMEN: Soft, nontender, normoactive bowel sounds. No guarding, no rebound EXTREMITIES: RUE fistula w/ palpable thrill; Normal inspection, Normal range of motion, no edema. No clubbing or cyanosis NEUROLOGICAL: Cranial nerves II through XII grossly intact. Normal speech, no focal sensorimotor deficits SKIN: Warm, Dry 07/15/18 17:38 Moderate Sedation - Procedure Monitoring Vital Signs: Procedure Monitoring Vital Signs Temperature 99.8 F H 07/15/18 13:34 Pulse Rate 98 H 07/15/18 13:34 Respiratory Rate 20 07/15/18 13:34 Blood Pressure 117/69 07/15/18 13:34 O2 Sat by Pulse Oximetry (%) 98 07/15/18 13:34 ED Treatment Course - LABORATORY CBC & Chemistry Diagram: 07/15/18 13:53 07/15/18 16:10 - ADDITIONAL ORDERS Additional order review: Laboratory Results 07/15/18 07/15/18 16:10 13:53 Sodium 134 L Cancelled Potassium 5.7 H Cancelled Chloride 97 L Cancelled Carbon Dioxide 23 Cancelled Anion Gap 13 Cancelled BUN 95 H Cancelled Creatinine 6.2 H Cancelled Creat Clearance w eGFR 6.86 Cancelled Random Glucose 88 Cancelled Calcium 7.2 L Cancelled Total Bilirubin 0.3 Cancelled AST 17 Cancelled ALT 23 Cancelled Alkaline Phosphatase 109 Cancelled Total Protein 6.6 Cancelled Albumin 2.1 L Cancelled 07/15/18 13:53 RBC 4.11 MCV 83.0 MCHC 32.7 RDW 23.4 H MPV 9.1 D Neutrophils % 64.4 Lymphocytes % 23.8 Monocytes % 10.2 Eosinophils % 0.2 D Basophils % 1.4 Medical Decision Making - Medical Decision Making The pt is a 07/15/18 18:30 Influenza A + Tamiflu 07/15/18 18:48 *DC/Admit/Observation/Transfer Diagnosis at time of Disposition: Influenza A - Discharge Dispostion Disposition: HOME Condition at time of disposition: Stable Decision to Admit order: No - Prescriptions Prescriptions: Oseltamivir Phosphate [Tamiflu -] 75 mg PO BID #10 capsule - Referrals Referrals: Mena Aquino [Primary Care Provider] - - Patient Instructions Printed Discharge Instructions: DI for Influenza -- Adult Additional Instructions: You were seen in the Emergency Department for evaluation of upper respiratory symptoms. You were found to he influenza. Review the handout provided at discharge. A prescription for Tamiflu was sent to the pharmacy that you specified. Follow up with your primary care provider. Return to the Emergency Department if you develop fevers despite Tylenol, vomiting, blood in your stool, or any new/concerning symptoms. Usted fue atendido en el Departamento de Emergencias para la evaluacin de los sntomas respiratorios superiores. Usted fue encontrado para la gripe. Revise el folleto provisto al momento del raffi. Se envi derik receta para Tamiflu a la farmacia que usted especific. Presley un seguimiento con allen proveedor de atencin primaria. Regrese al Departamento de Emergencias si desarrolla fiebre a pesar del Tylenol , los vmitos, la katelyn en las heces o cualquier sntoma nuevo o relacionado. - Post Discharge Activity
[2018-07-15] MEDS ORDERED: OSELTAMIVIR PHOSPHATE 75 MG CAPSULE PO ONE (17:36)
[2018-07-15] MEDS ORDERED: ALBUTEROL SO4 2.5/IPRATROPIUM 0.5 INH SOL 3 ML VIAL.NEB. NEB ONE ×2 (17:38→18:08)
[2018-07-15] MEDS ORDERED: ACETAMINOPHEN 325 MG TABLET (FP) PO ONE (17:46)
--- NOTE | 2018-07-15 17:48 | PDOC ---
Attending Attestation - Physicial Exam PE: 07/15/18 18:50 GENERAL: No apparent distress. HEENT: Normocephalic, atraumatic. PERRL, EOM intact. CARDIOVASCULAR: Normal S1, S2. Regular rate and rhythm. +PULMONARY: Scant wheezing blt. +ABDOMEN: Flat. Soft, non-distended, non-tender. +EXTREMITIES: RUE fistula. Normal ROM in all four extremities. No gross deformities. SKIN: Warm, dry. No rash NEUROLOGICAL: No focal neurological deficits. <Joselyn Tovar - Last Filed: 07/15/18 18:50> - Resident Resident Name: Antony Connolly - ED Attending Attestation I have performed the following: I have examined & evaluated the patient, The case was reviewed & discussed with the resident, I agree w/resident's findings & plan, Exceptions are as noted - HPI HPI: 07/15/18 17:47 63-year-old female who has had fevers, chills, loose stools, presents with her home health aide. Past medical history significant for dialysis Sunday, and Saturdays. She has complaint of myalgias - Physicial Exam PE: 07/15/18 17:48 63-year-old female with c/o body aches - Medical Decision Making 07/16/18 01:58 pt found to have influenza A and she had no respiratory difficulties and was discharged <Laura Guadarrama - Last Filed: 07/16/18 01:59> Attestations - Attestations 07/15/18 18:51 Documentation prepared by Joselyn Tovar, acting as medical imaging specialist for Laura Guadarrama MD. <Joselyn Tovar - Last Filed: 07/15/18 18:50>
[2018-07-15] MEDS ORDERED: ACETAMINOPHEN 325 MG TABLET (FP) ONE (18:08)
[2018-07-15] MEDS ORDERED: OSELTAMIVIR PHOSPHATE 75 MG CAPSULE ONE (18:08)
== END 2018-07-15 18:53 | disposition home or self-care (01) ==
LOC: JER 11:49
PROC: 3E0F7GC Introduction of Other Therapeutic Substance into Respiratory Tract, Via Natural or Artificial Opening (ICD-10-PCS; principal; 2018-07-15)
DX: J09.X2 Influenza due to identified novel influenza A virus with other respiratory manifestations (principal); I12.0 Hypertensive chronic kidney disease with stage 5 chronic kidney disease or end stage renal disease; N18.6 End stage renal disease; N17.8 Other acute kidney failure; Z99.2 Dependence on renal dialysis
CPT/HCPCS: 36415; 80053; 85025; 87040; 87804; 94640; 99283-25

== ENCOUNTER 2023-08-13 22:37 | Inpatient (IN) | payer OTHER ==
[2023-08-13 23:46] LABS: BASO % 0.2 % (0-2.0); EOS % 2.2 % (0-4.5); HEMATOCRIT 30.1 % (32.4-45.2); HEMOGLOBIN 9.9 GM/dL (10.7-15.3); LYMPH % 20.9 % (8-40); MCH 29.1 pg (25.7-33.7); MCHC 32.8 g/dl (32.0-36.0); MEAN CELL VOLUME 88.9 fl (80-96); MEAN PLT VOLUME 8.4 fl (7.5-11.1); NEUT % 65.7 % (42.8-82.8); PLATELET COUNT 300 10^3/uL (134-434); RBC 3.39 M/mm3 (3.60-5.2); RDW 20.9 % (11.6-15.6)
[2023-08-13 23:54] LABS: INR 1.1 (0.83-1.09); PROTHROMBIN TIME (PATIENT) 12.7 SEC (9.7-13.0)
[2023-08-13 23:56] LABS: ACTIVATED PTT 41.5 SECONDS (25.2-36.5)
[2023-08-14] MEDS ORDERED: ACETAMINOPHEN INJECTION 100 ML IVPB ONE (00:59)
[2023-08-14] MEDS: ACETAMINOPHEN 1000 MG/100 ML BAG IVPB ONE ×2 (01:03→10:24)
[2023-08-14 01:52] LABS: ALBUMIN 2.5 g/dl (3.4-5.0); ALK PHOS 130 U/L (45-117); ANION GAP 13 mmol/L (4-13); BILIRUBIN,TOTAL 0.3 mg/dL (0.2-1); BLOOD UREA NITROGEN 126.2 mg/dL (7-18); CALCIUM 7.9 mg/dL (8.5-10.1); CHLORIDE 110 mmol/L (98-107); CO2 21 mmol/L (21-32); GLUCOSE,RANDOM 113 mg/dL (74-106); POTASSIUM 6.7 mmol/L (3.5-5.1); SGOT/AST 5 U/L (15-37); SGPT/ALT 21 U/L (13-61); SODIUM 144 mmol/L (136-145); TOT PROT 7.1 g/dl (6.4-8.2)
[2023-08-14] MEDS ORDERED: DEXTROSE 50%-WATER 25 GM/50 ML DISP.SYRIN ONE (02:11)
[2023-08-14] MEDS ORDERED: CALCIUM GLUCONATE 10% - 1,000 MG/10 ML VIAL ONE (02:11)
[2023-08-14] MEDS ORDERED: SODIUM ZIRCONIUM CYCLOSILICATE (LOKELMA) 10 GM PACKET ONE (02:11)
[2023-08-14] MEDS ORDERED: INSULIN REGULAR HUMAN 100 UNITS/ML *VIAL ONE (02:12)
[2023-08-14] MEDS: DEXTROSE 50%-WATER - 25 GM/50 ML VIAL IVPUSH ONE (02:24)
[2023-08-14] MEDS: CALCIUM GLUCONATE 10% - 1,000 MG/10 ML VIAL IVPB ONE (02:24)
[2023-08-14] MEDS: INSULIN REGULAR HUMAN 100 UNITS/ML *VIAL IVPUSH ONE (02:24)
[2023-08-14] MEDS ORDERED: FENTANYL CITRATE/PF 50 MCG/ML VIAL ONE (02:56)
[2023-08-14] MEDS ORDERED: DOCUSATE SODIUM 100 MG CAPSULE (FP) PO PRN (03:41)
[2023-08-14 03:42] LABS: BASO % 0.9 % (0-2.0); EOS % 1.8 % (0-4.5); HEMATOCRIT 23.7 % (32.4-45.2); HEMOGLOBIN 7.4 GM/dL (10.7-15.3); LYMPH % 32.7 % (8-40); MCH 28.3 pg (25.7-33.7); MCHC 31.4 g/dl (32.0-36.0); MEAN CELL VOLUME 90.2 fl (80-96); MEAN PLT VOLUME 8.9 fl (7.5-11.1); NEUT % 54.6 % (42.8-82.8); PLATELET COUNT 298 10^3/uL (134-434); RBC 2.63 M/mm3 (3.60-5.2); RDW 20.9 % (11.6-15.6); WHITE BLOOD COUNT 12.5 K/mm3 (4.0-10.0)
[2023-08-14] MEDS: SODIUM CHLORIDE 500 ML IV STA (06:06)
[2023-08-14 06:16] LABS: CHLORIDE 106 mmol/L (98-107); SODIUM 141 mmol/L (136-145)
[2023-08-14 06:18] LABS: ANION GAP 14 mmol/L (4-13); CALCIUM 7.8 mg/dL (8.5-10.1); CO2 21 mmol/L (21-32); GLUCOSE,RANDOM 117 mg/dL (74-106)
[2023-08-14 06:19] LABS: MAGNESIUM 3.4 mg/dL (1.8-2.4)
[2023-08-14 06:22] LABS: PHOSPHOROUS 6.3 mg/dL (2.5-4.9)
[2023-08-14 07:17] LABS: BLOOD UREA NITROGEN 124.4 mg/dL (7-18); CREATININE 7.7 mg/dL (0.55-1.3)
[2023-08-14 09:13] LABS: ANISOCYTOSIS 2+; MACROCYTOSIS 1+
[2023-08-14] MEDS: SODIUM ZIRCONIUM CYCLOSILICATE (LOKELMA) 5 GM PACKET PO SCH (10:27)
[2023-08-14] MEDS ORDERED: SODIUM CHLORIDE 250 ML IV PRN (14:00)
[2023-08-14 15:07] LABS: BASO % 0.7 % (0-2.0); EOS % 1.1 % (0-4.5); HEMATOCRIT 24.5 % (32.4-45.2); HEMOGLOBIN 7.7 GM/dL (10.7-15.3); LYMPH % 15.5 % (8-40); MCH 26.2 pg (25.7-33.7); MCHC 31.3 g/dl (32.0-36.0); MEAN CELL VOLUME 83.8 fl (80-96); MEAN PLT VOLUME 9.4 fl (7.5-11.1); MONO % 7.3 % (3.8-10.2); NEUT % 75.4 % (42.8-82.8); PLATELET COUNT 213 10^3/uL (134-434); RBC 2.92 M/mm3 (3.60-5.2); RDW 25.5 % (11.6-15.6)
[2023-08-14] MEDS: EPOETIN ALFA-EPBX 10,000 UNIT/ML VIAL SQ ONE (15:12)
[2023-08-14] MEDS: CALCIUM ACETATE 667 MG CAPSULE (FP) PO SCH (17:15)
[2023-08-14] MEDS: ATORVASTATIN CA 40 MG TABLET (FP) PO SCH (21:27)
[2023-08-14] MEDS: SEVELAMER CARBONATE 800 MG TAB (FP) PO SCH (21:27)
[2023-08-14] MEDS: ACETAMINOPHEN 325 MG TABLET (FP) PO PRN (21:30)
[2023-08-15 08:11] LABS: BASO % 0.9 % (0-2.0); EOS % 2.7 % (0-4.5); HEMATOCRIT 21.4 % (32.4-45.2); LYMPH % 22.4 % (8-40); MCH 27.1 pg (25.7-33.7); MCHC 32.2 g/dl (32.0-36.0); MEAN CELL VOLUME 84.3 fl (80-96); MONO % 11.1 % (3.8-10.2); NEUT % 62.9 % (42.8-82.8); PLATELET COUNT 169 10^3/uL (134-434); RBC 2.54 M/mm3 (3.60-5.2); RDW 26.4 % (11.6-15.6); WHITE BLOOD COUNT 6.8 K/mm3 (4.0-10.0)
[2023-08-15 08:21] LABS: HEMOGLOBIN 6.9 GM/dL (10.7-15.3)
[2023-08-15 08:35] LABS: POTASSIUM 4.6 mmol/L (3.5-5.1)
[2023-08-15 08:39] LABS: ALBUMIN 2.4 g/dl (3.4-5.0); CALCIUM 7.8 mg/dL (8.5-10.1)
[2023-08-15 08:42] LABS: CREATININE 3.7 mg/dL (0.55-1.3)
[2023-08-15 08:44] LABS: TOT PROT 5.6 g/dl (6.4-8.2)
[2023-08-15 08:51] LABS: BILIRUBIN,TOTAL 0.3 mg/dL (0.2-1)
[2023-08-15 08:53] LABS: BLOOD UREA NITROGEN 42.2 mg/dL (7-18)
[2023-08-15 16:25] VITALS: BMI 24.0
[2023-08-15] MEDS ORDERED: FENTANYL PATCH WASTE MC PRN (17:23)
[2023-08-15] MEDS ORDERED: fentaNYL 12mcg/hr PATCH.TD72 TD ONE (17:24)
[2023-08-16 08:03] LABS: BASO % 0.6 % (0-2.0); EOS % 3.4 % (0-4.5); HEMATOCRIT 24.6 % (32.4-45.2); HEMOGLOBIN 8.3 GM/dL (10.7-15.3); LYMPH % 23.1 % (8-40); MCH 28.7 pg (25.7-33.7); MCHC 33.7 g/dl (32.0-36.0); MEAN CELL VOLUME 85.2 fl (80-96); MEAN PLT VOLUME 9.3 fl (7.5-11.1); MONO % 10.2 % (3.8-10.2); NEUT % 62.7 % (42.8-82.8); PLATELET COUNT 156 10^3/uL (134-434); RBC 2.88 M/mm3 (3.60-5.2); RDW 23.5 % (11.6-15.6); WHITE BLOOD COUNT 7.3 K/mm3 (4.0-10.0)
[2023-08-16] MEDS: VITAMIN B COMP W-C 1 EA TABLET (NEPHRO-VITE) PO SCH (09:20)
[2023-08-16] MEDS ORDERED: SODIUM CHLORIDE 250 ML IV PRN (13:45)
[2023-08-16 13:56] LABS: HEMATOCRIT 25.5 % (32.4-45.2); HEMOGLOBIN 8.2 GM/dL (10.7-15.3); MCH 27.8 pg (25.7-33.7); MCHC 32.3 g/dl (32.0-36.0); MEAN CELL VOLUME 86.2 fl (80-96); MEAN PLT VOLUME 9.4 fl (7.5-11.1); PLATELET COUNT 170 10^3/uL (134-434); RBC 2.96 M/mm3 (3.60-5.2); RDW 23.9 % (11.6-15.6)
[2023-08-16 14:10] LABS: POTASSIUM 4.4 mmol/L (3.5-5.1)
[2023-08-16 14:12] LABS: ALBUMIN 2.2 g/dl (3.4-5.0); CALCIUM 7.8 mg/dL (8.5-10.1)
[2023-08-16 14:13] LABS: BLOOD UREA NITROGEN 58.6 mg/dL (7-18)
[2023-08-16 14:15] LABS: CREATININE 4.9 mg/dL (0.55-1.3)
[2023-08-16 14:17] LABS: BILIRUBIN,TOTAL 0.3 mg/dL (0.2-1); TOT PROT 5.4 g/dl (6.4-8.2)
[2023-08-16] MEDS: EPOETIN ALFA-EPBX 10,000 UNIT/ML VIAL IVPUSH ONE (15:05)
[2023-08-16] MEDS: APIXABAN 2.5 MG TABLET PO SCH (21:37)
[2023-08-17 02:19] VITALS: RESP 18
[2023-08-17 07:55] LABS: BASO % 0.5 % (0-2.0); EOS % 1.8 % (0-4.5); HEMATOCRIT 25.9 % (32.4-45.2); HEMOGLOBIN 8.5 GM/dL (10.7-15.3); LYMPH % 21.8 % (8-40); MCHC 32.7 g/dl (32.0-36.0); MEAN CELL VOLUME 85.7 fl (80-96); MEAN PLT VOLUME 9.5 fl (7.5-11.1); NEUT % 66.9 % (42.8-82.8); PLATELET COUNT 200 10^3/uL (134-434); RBC 3.03 M/mm3 (3.60-5.2); RDW 22.8 % (11.6-15.6); WHITE BLOOD COUNT 8.3 K/mm3 (4.0-10.0)
[2023-08-17 08:03] LABS: POTASSIUM 3.7 mmol/L (3.5-5.1)
[2023-08-17 08:05] LABS: CALCIUM 7.5 mg/dL (8.5-10.1)
[2023-08-17 08:07] LABS: ALBUMIN 2.2 g/dl (3.4-5.0)
[2023-08-17 08:09] LABS: CREATININE 2.4 mg/dL (0.55-1.3)
[2023-08-17 08:10] LABS: BILIRUBIN,TOTAL 0.3 mg/dL (0.2-1)
[2023-08-17 08:11] LABS: TOT PROT 5.6 g/dl (6.4-8.2)
[2023-08-17 08:15] LABS: BLOOD UREA NITROGEN 22.7 mg/dL (7-18)
[2023-08-17 09:23] LABS: ANISOCYTOSIS 2+; MACROCYTOSIS 1+
[2023-08-17 11:02] VITALS: BP 139/84; PULSE 87; TEMP 97.8
[2023-08-17] MEDS ORDERED: SODIUM CHLORIDE 250 ML IV PRN (14:22)
[2023-08-18] MEDS ORDERED: EPOETIN ALFA-EPBX 10,000 UNIT/ML VIAL SQ ONE (14:22)
== END 2023-08-17 18:01 | disposition home or self-care (01) | DRG 314 ==
LOC: JER 22:37 → JERBED 08-14 02:29 → J4S 08-14 05:27 → OBSVTOIN 08-15 09:31
PROVIDERS: ADMIT Internal Medicine; ATTEND Internal Medicine
PROC: 30233N1 Transfusion of Nonautologous Red Blood Cells into Peripheral Vein, Percutaneous Approach (ICD-10-PCS; principal; 2023-08-14)
PROC: 5A1D70Z Performance of Urinary Filtration, Intermittent, Less than 6 Hours Per Day (ICD-10-PCS; 2023-08-16)
DX: T82.838A Hemorrhage due to vascular prosthetic devices, implants and grafts, initial encounter (principal); N18.6 End stage renal disease; I12.0 Hypertensive chronic kidney disease with stage 5 chronic kidney disease or end stage renal disease; D64.9 Anemia, unspecified; E78.5 Hyperlipidemia, unspecified; E87.5 Hyperkalemia; Y83.9 Surgical procedure, unspecified as the cause of abnormal reaction of the patient, or of later complication, without mention of misadventure at the time of the procedure; Z99.2 Dependence on renal dialysis
CPT/HCPCS: 36415; 36430; 71045-TC-FY; 80048; 80053; 82962; 83735; 84100; 84484; 85025; 85027; 85610; 85730; 86704; 86803; 86850; 86900; 86901; 86922; 87340; 87517; 93005; 93010; 99285-25; G0378; J0131; P9058; Q5106

== ENCOUNTER 2023-08-23 22:33 | Inpatient (IN) | payer OTHER ==
[2023-08-24 00:04] LABS: BASO % 1.3 % (0-2.0); EOS % 3.2 % (0-4.5); HEMATOCRIT 28.4 % (32.4-45.2); HEMOGLOBIN 8.8 GM/dL (10.7-15.3); MCH 27.8 pg (25.7-33.7); MCHC 30.9 g/dl (32.0-36.0); MEAN CELL VOLUME 90.2 fl (80-96); MEAN PLT VOLUME 8.8 fl (7.5-11.1); MONO % 9.7 % (3.8-10.2); NEUT % 66.8 % (42.8-82.8); PLATELET COUNT 363 10^3/uL (134-434); RBC 3.14 M/mm3 (3.60-5.2); RDW 24.2 % (11.6-15.6); WHITE BLOOD COUNT 9.9 K/mm3 (4.0-10.0)
[2023-08-24 00:14] LABS: INR 1.38 (0.83-1.09); PROTHROMBIN TIME (PATIENT) 15.9 SEC (9.7-13.0)
[2023-08-24 00:16] LABS: ACTIVATED PTT 41.8 SECONDS (25.2-36.5)
[2023-08-24 00:30] LABS: POTASSIUM 5.5 mmol/L (3.5-5.1)
[2023-08-24 00:31] LABS: BLOOD UREA NITROGEN 45.6 mg/dL (7-18); CALCIUM 8.3 mg/dL (8.5-10.1)
[2023-08-24 00:32] LABS: ALBUMIN 2.3 g/dl (3.4-5.0)
[2023-08-24 00:35] LABS: CREATININE 3.3 mg/dL (0.55-1.3)
[2023-08-24 00:36] LABS: BILIRUBIN,TOTAL 0.3 mg/dL (0.2-1); TOT PROT 6.6 g/dl (6.4-8.2)
[2023-08-24] MEDS ORDERED: ALBUTEROL SO4 HFA INHALER IH PRN (05:32)
[2023-08-24 05:55] LABS: ANISOCYTOSIS 3+; MACROCYTOSIS 0; OVALOCYTE 1+
[2023-08-24 09:05] LABS: BASO % 1.3 % (0-2.0); EOS % 3.9 % (0-4.5); HEMOGLOBIN 7.5 GM/dL (10.7-15.3); LYMPH % 22.9 % (8-40); MCH 28.1 pg (25.7-33.7); MCHC 31.4 g/dl (32.0-36.0); MEAN CELL VOLUME 89.5 fl (80-96); MEAN PLT VOLUME 8.8 fl (7.5-11.1); MONO % 9.5 % (3.8-10.2); NEUT % 62.4 % (42.8-82.8); PLATELET COUNT 336 10^3/uL (134-434); RBC 2.68 M/mm3 (3.60-5.2); RDW 24.1 % (11.6-15.6); WHITE BLOOD COUNT 7.5 K/mm3 (4.0-10.0)
[2023-08-24 09:41] LABS: POTASSIUM 5.1 mmol/L (3.5-5.1)
[2023-08-24 09:44] LABS: BLOOD UREA NITROGEN 55.1 mg/dL (7-18); CALCIUM 8.2 mg/dL (8.5-10.1)
[2023-08-24 09:48] LABS: CREATININE 3.9 mg/dL (0.55-1.3)
[2023-08-24] MEDS: SEVELAMER CARBONATE 800 MG TAB (FP) PO SCH (10:37)
[2023-08-24] MEDS: CALCIUM ACETATE 667 MG CAPSULE (FP) PO SCH (10:37)
[2023-08-24] MEDS: PANTOPRAZOLE 40 MG TABLET PO SCH (10:37)
[2023-08-24] MEDS ORDERED: SODIUM CHLORIDE 250 ML IV PRN (12:44)
[2023-08-24] MEDS: ACETAMINOPHEN 1000 MG/100 ML BAG IVPB ONE (16:02)
[2023-08-24] MEDS: CINACALCET HCL 30 MG TAB (FP) PO SCH (16:02)
[2023-08-24] MEDS: ATORVASTATIN CA 40 MG TABLET (FP) PO SCH (23:08)
[2023-08-25 08:07] LABS: BASO % 1.2 % (0-2.0); EOS % 4.5 % (0-4.5); HEMATOCRIT 23.3 % (32.4-45.2); HEMOGLOBIN 7.3 GM/dL (10.7-15.3); MCH 28.4 pg (25.7-33.7); MCHC 31.4 g/dl (32.0-36.0); MEAN CELL VOLUME 90.4 fl (80-96); MEAN PLT VOLUME 8.7 fl (7.5-11.1); MONO % 9.4 % (3.8-10.2); NEUT % 64.9 % (42.8-82.8); PLATELET COUNT 376 10^3/uL (134-434); RBC 2.58 M/mm3 (3.60-5.2); RDW 24.3 % (11.6-15.6); WHITE BLOOD COUNT 8.1 K/mm3 (4.0-10.0)
[2023-08-25 08:28] LABS: POTASSIUM 5.3 mmol/L (3.5-5.1)
[2023-08-25 08:38] LABS: CALCIUM 7.9 mg/dL (8.5-10.1)
[2023-08-25 08:39] LABS: ALBUMIN 2.1 g/dl (3.4-5.0); BLOOD UREA NITROGEN 63.9 mg/dL (7-18)
[2023-08-25 08:41] LABS: CREATININE 5.4 mg/dL (0.55-1.3)
[2023-08-25 08:42] LABS: BILIRUBIN,TOTAL 0.3 mg/dL (0.2-1); TOT PROT 5.8 g/dl (6.4-8.2)
[2023-08-25] MEDS: EPOETIN ALFA-EPBX 10,000 UNIT/ML VIAL IVPUSH ONE (12:00)
[2023-08-26 08:54] LABS: BASO % 0.7 % (0-2.0); EOS % 3.4 % (0-4.5); HEMATOCRIT 25.8 % (32.4-45.2); LYMPH % 17.9 % (8-40); MCH 28.1 pg (25.7-33.7); MCHC 30.9 g/dl (32.0-36.0); MEAN CELL VOLUME 91.1 fl (80-96); MEAN PLT VOLUME 8.2 fl (7.5-11.1); MONO % 9.3 % (3.8-10.2); NEUT % 68.7 % (42.8-82.8); PLATELET COUNT 370 10^3/uL (134-434); RBC 2.84 M/mm3 (3.60-5.2); RDW 24.1 % (11.6-15.6); WHITE BLOOD COUNT 9.1 K/mm3 (4.0-10.0)
[2023-08-26 09:11] LABS: POTASSIUM 4.3 mmol/L (3.5-5.1)
[2023-08-26 09:17] LABS: CALCIUM 7.9 mg/dL (8.5-10.1)
[2023-08-26 09:30] LABS: BLOOD UREA NITROGEN 21.6 mg/dL (7-18)
[2023-08-26] MEDS: ACETAMINOPHEN 325 MG TABLET (FP) PO PRN (14:24)
[2023-08-27 09:32] LABS: BASO % 0.4 % (0-2.0); EOS % 1.1 % (0-4.5); HEMATOCRIT 23.9 % (32.4-45.2); HEMOGLOBIN 7.5 GM/dL (10.7-15.3); LYMPH % 6.4 % (8-40); MCH 28.4 pg (25.7-33.7); MCHC 31.6 g/dl (32.0-36.0); MEAN CELL VOLUME 89.8 fl (80-96); MEAN PLT VOLUME 8.5 fl (7.5-11.1); MONO % 7.4 % (3.8-10.2); NEUT % 84.7 % (42.8-82.8); PLATELET COUNT 372 10^3/uL (134-434); RBC 2.66 M/mm3 (3.60-5.2); RDW 24.2 % (11.6-15.6); WHITE BLOOD COUNT 14.3 K/mm3 (4.0-10.0)
[2023-08-27 09:55] LABS: POTASSIUM 4.9 mmol/L (3.5-5.1)
[2023-08-27 10:13] LABS: ALBUMIN 2.1 g/dl (3.4-5.0)
[2023-08-27 10:14] LABS: BLOOD UREA NITROGEN 36.2 mg/dL (7-18); CALCIUM 7.4 mg/dL (8.5-10.1)
[2023-08-27 10:16] LABS: CREATININE 4.5 mg/dL (0.55-1.3)
[2023-08-27 10:19] LABS: BILIRUBIN,TOTAL 0.4 mg/dL (0.2-1); TOT PROT 5.8 g/dl (6.4-8.2)
[2023-08-27 10:21] LABS: ANISOCYTOSIS 1+; MACROCYTOSIS 0
[2023-08-27] MEDS ORDERED: SODIUM CHLORIDE 250 ML IV PRN (15:18)
[2023-08-27] MEDS: ACETAMINOPHEN 1000 MG/100 ML BAG IVPB ONE (20:25)
[2023-08-28] MEDS: ACETAMINOPHEN 1000 MG/100 ML BAG IVPB ONE (05:34)
[2023-08-28] MEDS: VANCOMYCIN/WATER FOR INJ (PEG) 750 MG/150 ML BAG IVPB ONE (08:18)
[2023-08-28] MEDS: LIDOCAINE HCL 1%, 10 MG/ML (50 mL VIAL) SQ ONE (13:08)
[2023-08-28 14:00] LABS: HEMATOCRIT 24.3 % (32.4-45.2); HEMOGLOBIN 7.4 GM/dL (10.7-15.3); MCH 27.2 pg (25.7-33.7); MCHC 30.3 g/dl (32.0-36.0); MEAN CELL VOLUME 89.6 fl (80-96); MEAN PLT VOLUME 8.4 fl (7.5-11.1); PLATELET COUNT 339 10^3/uL (134-434); RBC 2.71 M/mm3 (3.60-5.2); RDW 24.4 % (11.6-15.6); WHITE BLOOD COUNT 15.6 K/mm3 (4.0-10.0)
[2023-08-28 14:24] LABS: CHLORIDE 102 mmol/L (98-107); POTASSIUM 5.2 mmol/L (3.5-5.1); SODIUM 136 mmol/L (136-145)
[2023-08-28 14:28] LABS: ANION GAP 12 mmol/L (4-13); BLOOD UREA NITROGEN 54.8 mg/dL (7-18); CALCIUM 7.3 mg/dL (8.5-10.1); CO2 22 mmol/L (21-32)
[2023-08-28 14:31] LABS: CREATININE 5.7 mg/dL (0.55-1.3); SGOT/AST 12 U/L (15-37); SGPT/ALT 9 U/L (13-61)
[2023-08-28 14:33] LABS: BILIRUBIN,TOTAL 0.6 mg/dL (0.2-1); TOT PROT 5.7 g/dl (6.4-8.2)
[2023-08-28 14:34] LABS: ALK PHOS 105 U/L (45-117)
[2023-08-28 14:37] LABS: GLUCOSE,RANDOM 33 mg/dL (74-106)
[2023-08-28] MEDS: EPOETIN ALFA-EPBX 10,000 UNIT/ML VIAL IVPUSH ONE (15:39)
[2023-08-28 19:42] LABS: BASO % 0.4 % (0-2.0); HEMATOCRIT 24.2 % (32.4-45.2); HEMOGLOBIN 7.5 GM/dL (10.7-15.3); LYMPH % 1.3 % (8-40); MCHC 30.9 g/dl (32.0-36.0); MEAN CELL VOLUME 87.4 fl (80-96); MEAN PLT VOLUME 8.4 fl (7.5-11.1); NEUT % 93.3 % (42.8-82.8); PLATELET COUNT 321 10^3/uL (134-434); RBC 2.77 M/mm3 (3.60-5.2); RDW 24.8 % (11.6-15.6); WHITE BLOOD COUNT 12.2 K/mm3 (4.0-10.0)
[2023-08-28 20:36] LABS: ANISOCYTOSIS 3+; MACROCYTOSIS 0
[2023-08-28] MEDS: SODIUM CHLORIDE 500 ML IV STA (21:48)
[2023-08-29] MEDS: LIDOCAINE HCL 1%, 10 MG/ML (20ML VIAL) NR ONE
[2023-08-29] MEDS: HEPARIN NA (PORCINE) 1,000 UNITS/ML 10ML M-D VIAL SQ ONE
[2023-08-29] MEDS ORDERED: LIDOCAINE HCL 1%, 10 MG/ML (20ML VIAL) ONE (07:08)
[2023-08-29] MEDS ORDERED: HEPARIN NA (PORCINE) 5,000 UNITS/ML 1ML VIAL ONE (07:09)
[2023-08-29] MEDS ORDERED: FENTANYL CITRATE/PF 50 MCG/ML VIAL ONE (07:30)
[2023-08-29] MEDS ORDERED: MIDAZOLAM HCL 2 MG/2 ML SINGLE DOSE VIAL ONE (07:30)
[2023-08-29 10:00] LABS: POTASSIUM 4.2 mmol/L (3.5-5.1)
[2023-08-29 10:05] LABS: CALCIUM 7.3 mg/dL (8.5-10.1)
[2023-08-29 10:06] LABS: ALBUMIN 1.8 g/dl (3.4-5.0); BLOOD UREA NITROGEN 30.8 mg/dL (7-18)
[2023-08-29 10:09] LABS: CREATININE 3.8 mg/dL (0.55-1.3)
[2023-08-29 10:11] LABS: BILIRUBIN,TOTAL 0.4 mg/dL (0.2-1); TOT PROT 5.4 g/dl (6.4-8.2)
[2023-08-29 10:17] LABS: BASO % 0.5 % (0-2.0); EOS % 1.1 % (0-4.5); HEMATOCRIT 23.2 % (32.4-45.2); HEMOGLOBIN 7.3 GM/dL (10.7-15.3); LYMPH % 5.2 % (8-40); MCH 27.7 pg (25.7-33.7); MCHC 31.4 g/dl (32.0-36.0); MEAN CELL VOLUME 88.2 fl (80-96); MEAN PLT VOLUME 8.4 fl (7.5-11.1); MONO % 6.9 % (3.8-10.2); NEUT % 86.3 % (42.8-82.8); PLATELET COUNT 265 10^3/uL (134-434); RBC 2.63 M/mm3 (3.60-5.2); RDW 24.8 % (11.6-15.6)
[2023-08-29] MEDS: SODIUM ZIRCONIUM CYCLOSILICATE (LOKELMA) 5 GM PACKET PO SCH (14:11)
[2023-08-29] MEDS: VANCOMYCIN PREMIX 1.5 GM 1,500 MG/300 ML BAG IVPB ONE (14:11)
[2023-08-29] MEDS: EPOETIN ALFA-EPBX 10,000 UNIT/ML VIAL SQ ONE (15:58)
[2023-08-29] MEDS: LIDOCAINE 4% PATCH TP SCH (19:04)
[2023-08-29] MEDS: LIDOCAINE PATCH REMOVAL MC SCH (22:42)
[2023-08-30 08:28] LABS: BASO % 1.4 % (0-2.0); EOS % 4.8 % (0-4.5); HEMATOCRIT 22.3 % (32.4-45.2); LYMPH % 11.5 % (8-40); MCH 27.3 pg (25.7-33.7); MCHC 31.2 g/dl (32.0-36.0); MEAN CELL VOLUME 87.6 fl (80-96); MEAN PLT VOLUME 8.9 fl (7.5-11.1); MONO % 10.7 % (3.8-10.2); NEUT % 71.6 % (42.8-82.8); PLATELET COUNT 239 10^3/uL (134-434); RBC 2.55 M/mm3 (3.60-5.2); RDW 25.2 % (11.6-15.6); WHITE BLOOD COUNT 5.2 K/mm3 (4.0-10.0)
[2023-08-30 08:50] LABS: POTASSIUM 4.2 mmol/L (3.5-5.1)
[2023-08-30 08:53] LABS: ALBUMIN 1.8 g/dl (3.4-5.0)
[2023-08-30 08:55] LABS: BLOOD UREA NITROGEN 42.7 mg/dL (7-18)
[2023-08-30 08:57] LABS: CREATININE 4.7 mg/dL (0.55-1.3)
[2023-08-30 09:00] LABS: BILIRUBIN,TOTAL 0.4 mg/dL (0.2-1); TOT PROT 5.2 g/dl (6.4-8.2)
[2023-08-30] MEDS: FUROSEMIDE 40 MG/4 ML INJECTABLE VIAL IVPUSH ONE (17:49)
[2023-08-30] MEDS: ACETAMINOPHEN 325 MG TABLET (FP) PO PRN (23:57)
[2023-08-31 15:33] LABS: HEMATOCRIT 25.2 % (32.4-45.2); HEMOGLOBIN 7.9 GM/dL (10.7-15.3); MCH 27.5 pg (25.7-33.7); MCHC 31.6 g/dl (32.0-36.0); MEAN CELL VOLUME 87.1 fl (80-96); MEAN PLT VOLUME 8.4 fl (7.5-11.1); PLATELET COUNT 286 10^3/uL (134-434); RBC 2.89 M/mm3 (3.60-5.2); WHITE BLOOD COUNT 4.8 K/mm3 (4.0-10.0)
[2023-08-31 15:51] LABS: POTASSIUM 3.8 mmol/L (3.5-5.1)
[2023-08-31 15:52] LABS: CALCIUM 7.5 mg/dL (8.5-10.1)
[2023-08-31 15:53] LABS: BLOOD UREA NITROGEN 58.2 mg/dL (7-18)
[2023-08-31 15:56] LABS: CREATININE 6.2 mg/dL (0.55-1.3)
[2023-08-31 15:57] LABS: BILIRUBIN,TOTAL 0.3 mg/dL (0.2-1); TOT PROT 5.6 g/dl (6.4-8.2)
[2023-08-31] MEDS ORDERED: FUROSEMIDE 40 MG/4 ML INJECTABLE VIAL ONE (17:53)
[2023-08-31] MEDS: FUROSEMIDE 40 MG TABLET (FP) PO ONE ×2 (18:10→18:14)
[2023-09-01 16:18] LABS: EOS % 5.8 % (0-4.5); HEMATOCRIT 23.7 % (32.4-45.2); HEMOGLOBIN 7.2 GM/dL (10.7-15.3); MCH 26.5 pg (25.7-33.7); MCHC 30.3 g/dl (32.0-36.0); MEAN CELL VOLUME 87.4 fl (80-96); MEAN PLT VOLUME 8.9 fl (7.5-11.1); MONO % 11.5 % (3.8-10.2); NEUT % 59.7 % (42.8-82.8); PLATELET COUNT 281 10^3/uL (134-434); RBC 2.72 M/mm3 (3.60-5.2); RDW 26.3 % (11.6-15.6); WHITE BLOOD COUNT 4.9 K/mm3 (4.0-10.0)
[2023-09-01 16:39] LABS: POTASSIUM 4.4 mmol/L (3.5-5.1)
[2023-09-01 16:41] LABS: CALCIUM 7.9 mg/dL (8.5-10.1)
[2023-09-01 16:42] LABS: ALBUMIN 1.9 g/dl (3.4-5.0); BLOOD UREA NITROGEN 70.4 mg/dL (7-18)
[2023-09-01 16:45] LABS: CREATININE 6.6 mg/dL (0.55-1.3)
[2023-09-01 16:46] LABS: BILIRUBIN,TOTAL 0.3 mg/dL (0.2-1)
[2023-09-01 16:47] LABS: TOT PROT 5.4 g/dl (6.4-8.2)
[2023-09-01 17:15] LABS: ANISOCYTOSIS 3+; MACROCYTOSIS 1+; OVALOCYTE 1+; TARGET CELLS 1+; TEAR DROP CELLS 1+
[2023-09-02] MEDS ORDERED: SODIUM CHLORIDE 250 ML IV PRN (12:36)
[2023-09-02] MEDS: diphenhydrAMINE HCL 25 MG CAPSULE (FP) PO ONE (22:36)
[2023-09-03 10:02] LABS: CHLORIDE 106 mmol/L (98-107); POTASSIUM 5.2 mmol/L (3.5-5.1); SODIUM 141 mmol/L (136-145)
[2023-09-03 10:03] LABS: ANION GAP 12 mmol/L (4-13); BLOOD UREA NITROGEN 91.7 mg/dL (7-18); CALCIUM 8.1 mg/dL (8.5-10.1); CO2 22 mmol/L (21-32); GLUCOSE,RANDOM 68 mg/dL (74-106)
[2023-09-03 10:07] LABS: CREATININE 8.2 mg/dL (0.55-1.3)
[2023-09-03 15:03] VITALS: BMI 17.7
[2023-09-03] MEDS ORDERED: LIDOCAINE HCL 1%, 10 MG/ML (20ML VIAL) ONE (15:07)
[2023-09-03] MEDS ORDERED: ONDANSETRON 4 MG/2 ML VIAL IVPUSH PRN ×2 (16:21→17:18)
[2023-09-03] MEDS ORDERED: FENTANYL CITRATE/PF 50 MCG/ML VIAL ONE ×2 (16:26→17:58)
[2023-09-03] MEDS ORDERED: MIDAZOLAM HCL 2 MG/2 ML SINGLE DOSE VIAL ONE (16:27)
[2023-09-03] MEDS ORDERED: SODIUM CHLORIDE 1,000 ML IV SCH (16:30)
[2023-09-03] MEDS ORDERED: ceFAZolin SODIUM 1 GM VIAL ONE (16:41)
[2023-09-03] MEDS: LIDOCAINE HCL 1%, 10 MG/ML (20ML VIAL) NR ONE (16:45)
[2023-09-03] MEDS ORDERED: BACITRACIN ZINC 15 GM TUBE TOPICAL OINTMENT ONE (16:58)
[2023-09-03] MEDS ORDERED: SODIUM CHLORIDE 250 ML IV PRN (17:18)
[2023-09-03] MEDS ORDERED: ALBUTEROL SO4 HFA INHALER IH PRN (17:18)
[2023-09-03] MEDS: CALCIUM ACETATE 667 MG CAPSULE (FP) PO SCH (18:54)
[2023-09-03] MEDS: SEVELAMER CARBONATE 800 MG TAB (FP) PO SCH (18:55)
[2023-09-03] MEDS: PANTOPRAZOLE 40 MG TABLET PO SCH (22:17)
[2023-09-03] MEDS: LIDOCAINE PATCH REMOVAL MC SCH (22:17)
[2023-09-03] MEDS: SODIUM CHLORIDE 1,000 ML IV SCH (22:17)
[2023-09-03] MEDS: ATORVASTATIN CA 40 MG TABLET (FP) PO SCH (22:17)
[2023-09-03] MEDS: ACETAMINOPHEN 325 MG TABLET (FP) PO PRN (22:18)
[2023-09-04 07:53] LABS: BASO % 0.7 % (0-2.0); EOS % 1.7 % (0-4.5); HEMATOCRIT 23.7 % (32.4-45.2); HEMOGLOBIN 7.3 GM/dL (10.7-15.3); LYMPH % 10.8 % (8-40); MCH 27.1 pg (25.7-33.7); MCHC 30.9 g/dl (32.0-36.0); MEAN CELL VOLUME 87.5 fl (80-96); MEAN PLT VOLUME 8.5 fl (7.5-11.1); MONO % 6.1 % (3.8-10.2); NEUT % 80.7 % (42.8-82.8); PLATELET COUNT 351 10^3/uL (134-434); RBC 2.71 M/mm3 (3.60-5.2); RDW 26.3 % (11.6-15.6); WHITE BLOOD COUNT 11.2 K/mm3 (4.0-10.0)
[2023-09-04 08:34] LABS: ALBUMIN 1.9 g/dl (3.4-5.0); BILIRUBIN,TOTAL 0.4 mg/dL (0.2-1); CALCIUM 7.3 mg/dL (8.5-10.1); CREATININE 4.6 mg/dL (0.55-1.3); POTASSIUM 4.2 mmol/L (3.5-5.1); TOT PROT 5.6 g/dl (6.4-8.2)
[2023-09-04] MEDS: LIDOCAINE 4% PATCH TP SCH (09:45)
[2023-09-04] MEDS: SODIUM ZIRCONIUM CYCLOSILICATE (LOKELMA) 5 GM PACKET PO SCH (09:46)
[2023-09-04] MEDS: CINACALCET HCL 30 MG TAB (FP) PO SCH (09:46)
[2023-09-04] MEDS ORDERED: SODIUM CHLORIDE 250 ML IV PRN (11:47)
[2023-09-05] MEDS: VANCOMYCIN 500 MG in DEXTROSE 5%-WATER 100 ML IVPB ONE (13:01)
[2023-09-05] MEDS ORDERED: SODIUM CHLORIDE 250 ML IV PRN (13:08)
[2023-09-06 08:04] LABS: BASO % 0.9 % (0-2.0); EOS % 4.5 % (0-4.5); HEMATOCRIT 26.4 % (32.4-45.2); HEMOGLOBIN 7.9 GM/dL (10.7-15.3); LYMPH % 27.7 % (8-40); MCH 26.7 pg (25.7-33.7); MCHC 29.8 g/dl (32.0-36.0); MEAN CELL VOLUME 89.6 fl (80-96); MEAN PLT VOLUME 8.9 fl (7.5-11.1); MONO % 7.4 % (3.8-10.2); NEUT % 59.5 % (42.8-82.8); PLATELET COUNT 425 10^3/uL (134-434); RBC 2.95 M/mm3 (3.60-5.2); RDW 27.7 % (11.6-15.6); WHITE BLOOD COUNT 8.5 K/mm3 (4.0-10.0)
[2023-09-06 08:26] LABS: CALCIUM 7.4 mg/dL (8.5-10.1)
[2023-09-06 08:27] LABS: ALBUMIN 2.1 g/dl (3.4-5.0); BLOOD UREA NITROGEN 30.1 mg/dL (7-18)
[2023-09-06 08:30] LABS: CREATININE 3.8 mg/dL (0.55-1.3)
[2023-09-06 08:31] LABS: BILIRUBIN,TOTAL 0.4 mg/dL (0.2-1)
[2023-09-06 09:00] VITALS: RESP 18; TEMP 97.8
[2023-09-06 11:03] LABS: ANISOCYTOSIS 0; MACROCYTOSIS 0
[2023-09-06 12:01] VITALS: BP 107/70; PULSE 79
== END 2023-09-06 19:50 | disposition home health service (06) | DRG 314 ==
LOC: JER 22:33 → JERBED 08-24 00:59 → OBSVTOIN 08-24 00:59 → J8W 08-24 06:53
PROVIDERS: ADMIT Internal Medicine; ATTEND Internal Medicine
PROC: 5A1D70Z Performance of Urinary Filtration, Intermittent, Less than 6 Hours Per Day (ICD-10-PCS; principal; 2023-08-25)
PROC: 5A1D70Z Performance of Urinary Filtration, Intermittent, Less than 6 Hours Per Day (ICD-10-PCS; 2023-08-28)
PROC: 5A1D70Z Performance of Urinary Filtration, Intermittent, Less than 6 Hours Per Day (ICD-10-PCS; 2023-09-03)
PROC: 02H633Z Insertion of Infusion Device into Right Atrium, Percutaneous Approach (ICD-10-PCS; 2023-09-03)
PROC: 5A1D70Z Performance of Urinary Filtration, Intermittent, Less than 6 Hours Per Day (ICD-10-PCS; 2023-09-04)
PROC: 5A1D70Z Performance of Urinary Filtration, Intermittent, Less than 6 Hours Per Day (ICD-10-PCS; 2023-09-06)
DX: T82.838A Hemorrhage due to vascular prosthetic devices, implants and grafts, initial encounter (principal); N18.6 End stage renal disease; I12.0 Hypertensive chronic kidney disease with stage 5 chronic kidney disease or end stage renal disease; R78.81 Bacteremia; E78.5 Hyperlipidemia, unspecified; K21.9 Gastro-esophageal reflux disease without esophagitis; Z99.2 Dependence on renal dialysis; E87.5 Hyperkalemia; D63.1 Anemia in chronic kidney disease; B95.62 Methicillin resistant Staphylococcus aureus infection as the cause of diseases classified elsewhere; Y84.8 Other medical procedures as the cause of abnormal reaction of the patient, or of later complication, without mention of misadventure at the time of the procedure
CPT/HCPCS: 36415; 71045-TC-FY; 76000-TC-FY; 80048; 80053; 82962; 83605; 85025; 85027; 85610; 85730; 86850; 86900; 86901; 87040; 87186; 93005; 93010; 93306-TC; 94760; 97116-GP; 97161-GP; 99285-25; C1750; G0480; J0131; J1644; Q5106

== ENCOUNTER 2024-02-01 04:12 | Day surgery (SDC) | payer OTHER ==
[2024-01-30 12:37] VITALS: BMI 17.6
[2024-02-01] MEDS ORDERED: DEXAMETHASONE SOD PHOSPHATE 10 MG/1 ML VIAL ONE (10:56)
[2024-02-01] MEDS ORDERED: ROPIVACAINE HCL 0.5% 30ML VIAL ONE (10:56)
[2024-02-01] MEDS ORDERED: SODIUM CHLORIDE 1,000 ML IV SCH (11:30)
[2024-02-01] MEDS: ceFAZolin SODIUM 1 GM VIAL IVPB ONE (11:44)
[2024-02-01] MEDS: LIDOCAINE HCL 1%, 10 MG/ML (50 mL VIAL) SQ ONE ×2 (11:50→12:02)
[2024-02-01] MEDS: POVIDONE-IODINE OINTMENT 10% - 28.4 GM TUBE TP ONE ×2 (12:47)
[2024-02-01 13:27] VITALS: TEMP 97.3
[2024-02-01 14:14] VITALS: RESP 20
[2024-02-01 14:35] VITALS: BP 97/63; PULSE 67
== END 2024-02-01 14:42 | disposition home or self-care (01) ==
LOC: JASU-SURG 04:12
PROVIDERS: ATTEND Surgery
PROC: 031C0ZF Bypass Left Radial Artery to Lower Arm Vein, Open Approach (ICD-10-PCS; principal; 2024-02-01 11:00)
DX: N18.6 End stage renal disease (principal); Z99.2 Dependence on renal dialysis
CPT/HCPCS: 36415; 84132; 94760; J1100; J1644

== ENCOUNTER 2024-07-25 08:03 | Emergency (ER) | payer OTHER ==
[2024-07-25 08:48] VITALS: RESP 18; BMI 19.5
[2024-07-25] MEDS ORDERED: ACETAMINOPHEN 325 MG TABLET (FP) ONE (09:38)
[2024-07-25] MEDS: ACETAMINOPHEN 500 MG TABLET (FP) PO ONE (09:52)
[2024-07-25 11:53] LABS: HIV INTERPRETATION NEGATIVE (NEGATIVE)
[2024-07-25 12:18] LABS: BASO % 1.1 % (0-2.0); HEMOGLOBIN 8.2 GM/dL (10.7-15.3); LYMPH % 17.5 % (8-40); MCHC 31.5 g/dl (32.0-36.0); MEAN CELL VOLUME 95.5 fl (80-96); MEAN PLT VOLUME 7.7 fl (7.5-11.1); MONO % 10.3 % (3.8-10.2); NEUT % 70.1 % (42.8-82.8); PLATELET COUNT 208 10^3/uL (134-434); RBC 2.73 M/mm3 (3.60-5.2); WHITE BLOOD COUNT 5.2 K/mm3 (4.0-10.0)
[2024-07-25 12:39] LABS: POTASSIUM 4.7 mmol/L (3.5-5.1)
[2024-07-25 12:42] LABS: ALBUMIN 2.3 g/dl (3.4-5.0); BLOOD UREA NITROGEN 59.8 mg/dL (7-18)
[2024-07-25 12:47] LABS: BILIRUBIN,TOTAL 0.5 mg/dL (0.2-1); TOT PROT 6.5 g/dl (6.4-8.2)
[2024-07-25 13:24] VITALS: BP 91/64; PULSE 76; TEMP 98.1
== END 2024-07-25 15:34 | disposition home or self-care (01) ==
LOC: JER 08:03
DX: U07.1 COVID-19 (principal); R53.1 Weakness; R51.9 Headache, unspecified; R05.9 Cough, unspecified; R53.81 Other malaise; R06.7 Sneezing; R50.9 Fever, unspecified; R09.81 Nasal congestion
CPT/HCPCS: 0241U-QW; 36415; 71045-TC-FY; 80053; 85025; 86803; 87389; 99283-25

== ENCOUNTER 2024-10-15 06:08 | Day surgery (SDC) | payer OTHER ==
[2024-10-14 06:21] VITALS: BMI 19.5
[2024-10-15 10:48] LABS: POTASSIUM 4.9 mmol/L (3.5-5.1)
[2024-10-15 10:54] LABS: ALBUMIN 2.8 g/dl (3.4-5.0); BLOOD UREA NITROGEN 62.2 mg/dL (7-18); CALCIUM 8.9 mg/dL (8.5-10.1)
[2024-10-15 10:58] LABS: CREATININE 4.7 mg/dL (0.55-1.3)
[2024-10-15 10:59] LABS: BILIRUBIN,TOTAL 0.4 mg/dL (0.2-1); TOT PROT 7.8 g/dl (6.4-8.2)
[2024-10-15] MEDS ORDERED: MIDAZOLAM HCL 2 MG/2 ML SINGLE DOSE VIAL ONE (11:46)
[2024-10-15] MEDS: ceFAZolin SODIUM 1 GM VIAL IVPB ONE (12:02)
[2024-10-15] MEDS: LIDOCAINE HCL 1%, 10 MG/ML (20ML VIAL) NR ONE (12:06)
[2024-10-15] MEDS ORDERED: PROPOFOL 20 ML ONE (12:18)
[2024-10-15] MEDS ORDERED: ONDANSETRON 4 MG/2 ML VIAL IVPUSH PRN (13:06)
[2024-10-15 13:58] VITALS: RESP 18; TEMP 97.3
[2024-10-15 14:06] VITALS: BP 109/67; PULSE 67
[2024-10-15] MEDS ORDERED: ACETAMINOPHEN 325 MG TABLET (FP) ONE (14:27)
[2024-10-15] MEDS ORDERED: ACETAMINOPHEN 325 MG TABLET (FP) PO ONE (14:37)
== END 2024-10-15 15:00 | disposition home or self-care (01) ==
LOC: JASU-SURG 06:08
PROVIDERS: ATTEND Surgery
PROC: 03C50ZZ Extirpation of Matter from Right Axillary Artery, Open Approach (ICD-10-PCS; 2024-10-15)
PROC: 05C70ZZ Extirpation of Matter from Right Axillary Vein, Open Approach (ICD-10-PCS; principal; 2024-10-15 12:00)
DX: T82.868A Thrombosis due to vascular prosthetic devices, implants and grafts, initial encounter (principal); I74.2 Embolism and thrombosis of arteries of the upper extremities; Y81.8 Miscellaneous general- and plastic-surgery devices associated with adverse incidents, not elsewhere classified
CPT/HCPCS: 36415; 80053; 88304-TC; 94760

== ENCOUNTER 2024-12-10 06:19 | Day surgery (SDC) | payer OTHER ==
[2024-12-09 09:43] VITALS: BMI 17.6
[2024-12-10] MEDS ORDERED: MIDAZOLAM HCL 2 MG/2 ML SINGLE DOSE VIAL ONE (09:15)
[2024-12-10] MEDS ORDERED: LIDOCAINE HCL/PF 2% SDV 5ML VIAL ONE (12:06)
[2024-12-10] MEDS ORDERED: PROPOFOL 20 ML ONE (12:06)
[2024-12-10] MEDS ORDERED: ONDANSETRON 4 MG/2 ML VIAL IVPUSH PRN (12:22)
[2024-12-10] MEDS ORDERED: PROMETHAZINE HCL 25 MG/1 ML VIAL IVPB PRN (12:22)
[2024-12-10] MEDS: LIDOCAINE HCL 1%, 10 MG/ML (50 mL VIAL) INF ONE ×3 (13:06)
[2024-12-10 14:48] VITALS: RESP 18; TEMP 97.3
[2024-12-10 16:10] VITALS: BP 133/66; PULSE 69
== END 2024-12-10 15:45 | disposition home or self-care (01) ==
LOC: JASU-SURG 06:19
PROVIDERS: ATTEND Surgery
PROC: 057Y3ZZ Dilation of Upper Vein, Percutaneous Approach (ICD-10-PCS; principal; 2024-12-10 10:00)
DX: T82.858A Stenosis of other vascular prosthetic devices, implants and grafts, initial encounter (principal); I12.0 Hypertensive chronic kidney disease with stage 5 chronic kidney disease or end stage renal disease; N18.6 End stage renal disease; Z99.2 Dependence on renal dialysis
CPT/HCPCS: 76000-TC-FY; 94760